=== PATIENT | female | born 1935 | race Caucasian/White ===

== ENCOUNTER 2019-04-30 19:19 | Inpatient (IN) | payer MEDICARE, OTHER ==
[~2019-04-30] VITALS: Ht 162.6 cm; Wt 48.5 kg
[~2019-04-30 19:19] MED LIST: ASCO250CH PO; ASPI81CH PO; CALCAVITDA PO; ERGO400 PO; FERR325 PO; FISH1000 PO; Ferrous Sulfat325 MG; HYDCHL25 PO; LATANOPROST2.5 ML OP; LEVSOD50 PO; METO50ER PO; PRAV20 PO; Prinivil10 MG PO; Vitamin B-12250 MCG PO; Vitamin C100 M1 PO
[2019-04-30] MEDS ORDERED: LATA.005SO BOTHEYES (21:50)
[2019-04-30] MEDS ORDERED: Prinivil10 MG PO (21:50)
[2019-04-30 21:58] LABS: Source, Urine Clean Catch
[2019-04-30 22:02] LABS: Appearance, Urine Clear (Clear); Bilirubin, Urine Neg (Neg); Blood, Urine Neg (Neg); Color, Urine Yellow (P-Yellow); Glucose Qualitative, Urine Neg (Neg); Ketones, Urine 2+ (Neg); Leukocyte Esterase, Urine 3+ (Neg); Nitrite, Urine Pos (Neg); Protein, Urine 1+ (Neg); Urobilinogen, Urine 1+ (Normal)
[2019-04-30 22:09] LABS: White Blood Cells, Urine 25-50 /hpf (0-5)
[2019-04-30 22:10] LABS: Bacteria Many /hpf; Red Blood Cells, Urine 0-2 /hpf (0-2); Squamous Epithelial Cells Few /hpf (Few)
[2019-04-30 22:14] LABS: BASOPHILS ABSOLUTE AUTO 0.03 K/mm3 (0.00-0.23); BASOPHILS PERCENT AUTO 0 % (0-2); EOSINOPHILS ABSOLUTE AUTO 0.03 K/mm3 (0.00-0.68); EOSINOPHILS PERCENT AUTO 0 % (0-6); Hematocrit 35.6 % (33.0-51.0); Hemoglobin 10.9 g/dL (11.5-16.0); IMMATURE GRAN ABSOLUTE AUTO 0.03 K/mm3 (0.00-0.10); IMMATURE GRAN PERCENT AUTO 0 % (0-1); LYMPHOCYTES ABSOLUTE AUTO 1.69 K/mm3 (0.84-5.20); LYMPHOCYTES PERCENT AUTO 21 % (21-46); MONOCYTES ABSOLUTE AUTO 0.57 K/mm3 (0.16-1.47); MONOCYTES PERCENT AUTO 7 % (4-13); Mean Corpuscular HGB 31.1 pg (26.0-34.0); Mean Corpuscular HGB Conc 30.6 g/dL (31.5-36.5); Mean Platelet Volume 10.2 fL (9.1-12.4); NEUTROPHILS ABSOLUTE AUTO 5.68 K/mm3 (1.96-9.15); NEUTROPHILS PERCENT AUTO 71 % (41-73); Platelet Count 419 K/mm3 (150-400); RDW Coefficient Variation 13.6 % (11.7-14.2); RDW Standard Deviation 50.9 fL (35.1-46.3); White Blood Cell Count 8.03 K/mm3 (4.00-11.30)
[2019-04-30 22:15] LABS: Mean Corpuscular Volume 102 fL (80-100)
[2019-04-30 22:32] LABS: Alanine Aminotransfer (ALT/SGP 33 U/L (12-78); Albumin, Blood 3.2 g/dL (3.4-5.0); Albumin/Globulin Ratio 0.9 (0.8-1.8); Alk Phos 88 U/L (50-136); Anion Gap 9 mmol/L (6-16); Aspartate Aminotrans (AST/SGOT 28 U/L (12-37); Bilirubin, Total 0.4 mg/dL (0.1-1.0); Blood Urea Nitrogen 28 mg/dL (8-24); Bun/Creatinine Ratio 35.4 (12.0-20.0); CO2, Blood 26 mmol/L (21-32); Calcium, Blood 8.7 mg/dL (8.5-10.1); Chloride, Blood 110 mmol/L (98-108); Creatinine, Blood 0.79 mg/dL (0.40-1.00); Globulin, Blood 3.7 g/dL (2.2-4.0); Glomerular Filtration Rate >60 (60-); Glucose, Blood 98 mg/dL (70-99); Potassium, Blood 3.9 mmol/L (3.5-5.5); Sodium, Blood 145 mmol/L (136-145); Total Protein, Blood 6.9 g/dL (6.4-8.2)
[2019-05-01 04:35] LABS: BASOPHILS ABSOLUTE AUTO 0.02 K/mm3 (0.00-0.23); BASOPHILS PERCENT AUTO 0 % (0-2); EOSINOPHILS ABSOLUTE AUTO 0.07 K/mm3 (0.00-0.68); EOSINOPHILS PERCENT AUTO 1 % (0-6); Hemoglobin 8.7 g/dL (11.5-16.0); IMMATURE GRAN ABSOLUTE AUTO 0.03 K/mm3 (0.00-0.10); IMMATURE GRAN PERCENT AUTO 1 % (0-1); LYMPHOCYTES PERCENT AUTO 26 % (21-46); MONOCYTES ABSOLUTE AUTO 0.72 K/mm3 (0.16-1.47); MONOCYTES PERCENT AUTO 11 % (4-13); Mean Corpuscular HGB 30.2 pg (26.0-34.0); Mean Corpuscular Volume 101 fL (80-100); Mean Platelet Volume 10.3 fL (9.1-12.4); NEUTROPHILS ABSOLUTE AUTO 3.92 K/mm3 (1.96-9.15); NEUTROPHILS PERCENT AUTO 61 % (41-73); Platelet Count 309 K/mm3 (150-400); RDW Coefficient Variation 13.3 % (11.7-14.2); RDW Standard Deviation 49.5 fL (35.1-46.3); Red Blood Cell Count 2.88 M/mm3 (3.80-5.20); White Blood Cell Count 6.46 K/mm3 (4.00-11.30)
[2019-05-01 04:49] LABS: International Normalized Ratio 1.03; Prothrombin Time Results 10.9 Sec (9.7-11.5)
[2019-05-01 05:04] LABS: Alanine Aminotransfer (ALT/SGP 22 U/L (12-78); Albumin, Blood 2.4 g/dL (3.4-5.0); Albumin/Globulin Ratio 0.9 (0.8-1.8); Alk Phos 63 U/L (50-136); Anion Gap 9 mmol/L (6-16); Aspartate Aminotrans (AST/SGOT 23 U/L (12-37); Bilirubin, Total 0.3 mg/dL (0.1-1.0); Blood Urea Nitrogen 22 mg/dL (8-24); CO2, Blood 22 mmol/L (21-32); Calcium, Blood 7.6 mg/dL (8.5-10.1); Chloride, Blood 113 mmol/L (98-108); Creatinine, Blood 0.65 mg/dL (0.40-1.00); Globulin, Blood 2.8 g/dL (2.2-4.0); Glomerular Filtration Rate >60 (60-); Glucose, Blood 71 mg/dL (70-99); Magnesium, Blood 1.7 mg/dL (1.6-2.4); Potassium, Blood 3.5 mmol/L (3.5-5.5); Sodium, Blood 144 mmol/L (136-145); Total Protein, Blood 5.2 g/dL (6.4-8.2)
--- NOTE | 2019-05-01 07:22 | NUR ---
SHIFT SUMMARY PT ARRIVED TO FLOOR IN NO DISTRESS. PT WAS CONNECTED TO SUCTION VIA NG TUBE. BROWNISH FLUID WAS NOTED. PT DENIED ANY PAIN OR NAUSEA. PT SLEPT T/O SHIFT WITHOUT ISSUE. PT AWAKE WITH CALL LIGHT IN REACH.
--- NOTE | 2019-05-01 07:30 | NUR ---
NG TUBE CLAMPED PER MD ORDER.
--- NOTE | 2019-05-01 12:41 | NUR ---
PT DENIES ABDOMINAL PAIN; NO INCREASED DISTENTION ON REPEAT ASSESSMENT AFTER NG CLAMPED FOR 4+ HOURS. RESIDUAL LESS THAN 20MLS WHEN RETURNED TO INTERMITTENT SUCTION. PT REPORTS FLATUS AND HAD A VERY SMALL BM. PLAN TO DC NG PER DR. VILLALOBOS'S ORDER.
--- NOTE | 2019-05-01 17:58 | NUR ---
SHIFT SUMMARY NG DISCONTINUED THIS SHIFT; PT TOLERATING CLEAR LIQUID DIET. SMALL BM X1; DENIES NAUSEA NO VOMITING ABDOMEN WITH SLIGHT TENDERNESS ON PALPATION; BOWEL SOUNDS HYPERACTIVE. [facility] AMBULATORY IN HALLWAY STANDBY ASSIST WITH WALKER AND GAIT BELT. FRIENDS TO VISIT TODAY. POSSIBLE DC TOMORROW.
[2019-05-02 04:37] LABS: BASOPHILS ABSOLUTE AUTO 0.03 K/mm3 (0.00-0.23); BASOPHILS PERCENT AUTO 1 % (0-2); EOSINOPHILS ABSOLUTE AUTO 0.18 K/mm3 (0.00-0.68); EOSINOPHILS PERCENT AUTO 4 % (0-6); Hematocrit 29.1 % (33.0-51.0); Hemoglobin 8.9 g/dL (11.5-16.0); IMMATURE GRAN ABSOLUTE AUTO 0.02 K/mm3 (0.00-0.10); IMMATURE GRAN PERCENT AUTO 0 % (0-1); LYMPHOCYTES ABSOLUTE AUTO 1.36 K/mm3 (0.84-5.20); LYMPHOCYTES PERCENT AUTO 27 % (21-46); MONOCYTES ABSOLUTE AUTO 0.59 K/mm3 (0.16-1.47); MONOCYTES PERCENT AUTO 12 % (4-13); Mean Corpuscular HGB 30.6 pg (26.0-34.0); Mean Corpuscular HGB Conc 30.6 g/dL (31.5-36.5); Mean Corpuscular Volume 100 fL (80-100); Mean Platelet Volume 10.1 fL (9.1-12.4); NEUTROPHILS ABSOLUTE AUTO 2.83 K/mm3 (1.96-9.15); NEUTROPHILS PERCENT AUTO 57 % (41-73); Platelet Count 320 K/mm3 (150-400); RDW Coefficient Variation 13.4 % (11.7-14.2); RDW Standard Deviation 49.1 fL (35.1-46.3); Red Blood Cell Count 2.91 M/mm3 (3.80-5.20); White Blood Cell Count 5.01 K/mm3 (4.00-11.30)
[2019-05-02 05:05] LABS: Albumin, Blood 2.7 g/dL (3.4-5.0); Anion Gap 8 mmol/L (6-16); Blood Urea Nitrogen 12 mg/dL (8-24); Bun/Creatinine Ratio 20.1 (12.0-20.0); CO2, Blood 24 mmol/L (21-32); Calcium, Blood 8.2 mg/dL (8.5-10.1); Chloride, Blood 113 mmol/L (98-108); Glomerular Filtration Rate >60 (60-); Glucose, Blood 82 mg/dL (70-99); Phosphorus, Blood 2.8 mg/dL (2.5-4.9); Potassium, Blood 3.5 mmol/L (3.5-5.5); Sodium, Blood 145 mmol/L (136-145)
--- NOTE | 2019-05-02 05:10 | NUR ---
PATIENT RESTED SOUNDLY THROUGHOUT THE NIGHT. SHE HAS HAD NO PAIN, HER ABDOMEN IS SOFT NON TENDER WITH ACTIVE BOWEL TONES. sHE IS ABLE TO SAFELY GET OOB TO BR. CALL LIGHT WITHIN REACH.
[2019-05-02] MEDS ORDERED: CEFU500T30 PO (09:45)
--- NOTE | 2019-05-02 10:12 | NUR ---
DISCHARGE NOTE PT DISCHARGED HOME VIA W/C POV WITH FRIEND AND IN NO ACUTE DISTRESS. IV DISCONTINUED INTACT. PT VERBALIZED UNDERSTANDING OF DISCHARGE INSTRUCTIONS AND IMPORTANCE OF MAKING FOLLOW UP APPTS WITH HER DOCTOR IN 1-[address] VELÁSQUEZ IN 2-4 WKS. RX FAXED TO [facility] ON [address]. ALL BELONGINGS SENT WITH PT AT TIME OF DISCHARGE.
== END 2019-05-02 10:15 | disposition home or self-care (01) | DRG 389 ==
LOC: ER 19:19 → MEDS 05-01 00:20 → ENPENDDIS 05-02 07:40 → MEDS 05-02 10:15
PROVIDERS: Internal Medicine Gastroenterology; Nurse Practitioner Acute Care; Physician Assistant; ADMIT Family Medicine
DX: K56.600 Partial intestinal obstruction, unspecified as to cause (principal); N39.0 Urinary tract infection, site not specified; G60.3 Idiopathic progressive neuropathy; I77.9 Disorder of arteries and arterioles, unspecified; E78.5 Hyperlipidemia, unspecified; I10 Essential (primary) hypertension; E03.9 Hypothyroidism, unspecified; M81.0 Age-related osteoporosis without current pathological fracture; G25.81 Restless legs syndrome; Z98.82 Breast implant status; Z79.82 Long term (current) use of aspirin; Z66 Do not resuscitate; E86.0 Dehydration; D50.9 Iron deficiency anemia, unspecified; Z86.73 Personal history of transient ischemic attack (TIA), and cerebral infarction without residual deficits; E78.00 Pure hypercholesterolemia, unspecified
CPT/HCPCS: 36415; 71046; 74019; 74176; 80053; 80061; 80069; 81001; 82728; 83540; 83550; 83690; 83735; 83880; 84443; 84484; 85025; 85610; 87077; 87086; 87186; 96361; 96365; 96375; 99285-25; J0696; J2405; J7030

== ENCOUNTER 2020-12-20 16:49 | Inpatient (IN) | payer MEDICARE, OTHER ==
[~2020-12-20] VITALS: Ht 162.6 cm; Wt 49.3 kg
[~2020-12-20 16:49] MED LIST changes: +CEFU500T30 PO; +LATA.005SO BOTHEYES
[2020-12-20 17:51] LABS: BASOPHILS ABSOLUTE AUTO 0.02 K/mm3 (0.00-0.23); BASOPHILS PERCENT AUTO 0 % (0-2); EOSINOPHILS ABSOLUTE AUTO 0.02 K/mm3 (0.00-0.68); EOSINOPHILS PERCENT AUTO 0 % (0-6); Hematocrit 34.6 % (33.0-51.0); Hemoglobin 10.8 g/dL (11.5-16.0); IMMATURE GRAN ABSOLUTE AUTO 0.04 K/mm3 (0.00-0.10); IMMATURE GRAN PERCENT AUTO 0 % (0-1); LYMPHOCYTES ABSOLUTE AUTO 1.08 K/mm3 (0.84-5.20); LYMPHOCYTES PERCENT AUTO 8 % (21-46); MONOCYTES ABSOLUTE AUTO 0.52 K/mm3 (0.16-1.47); MONOCYTES PERCENT AUTO 4 % (4-13); Mean Corpuscular HGB 32.5 pg (26.0-34.0); Mean Corpuscular HGB Conc 31.2 g/dL (31.5-36.5); Mean Corpuscular Volume 104 fL (80-100); Mean Platelet Volume 10.7 fL (9.1-12.4); NEUTROPHILS ABSOLUTE AUTO 11.44 K/mm3 (1.96-9.15); NEUTROPHILS PERCENT AUTO 87 % (41-73); Platelet Count 477 K/mm3 (150-400); RDW Coefficient Variation 16.1 % (11.7-14.2); RDW Standard Deviation 62.7 fL (35.1-46.3); Red Blood Cell Count 3.32 M/mm3 (3.80-5.20); White Blood Cell Count 13.12 K/mm3 (4.00-11.30)
[2020-12-20 17:56] LABS: Source, Urine Clean Catch
[2020-12-20 18:01] LABS: Appearance, Urine Hazy (Clear); Bilirubin, Urine Neg (Neg); Blood, Urine 1+ (Neg); Color, Urine Yellow (P-Yellow); Glucose Qualitative, Urine Neg (Neg); Ketones, Urine 1+ (Neg); Leukocyte Esterase, Urine 3+ (Neg); Nitrite, Urine Pos (Neg); Protein, Urine 2+ (Neg); Specific Gravity, Urine 1.025 (1.003-1.022); Urobilinogen, Urine NORM (Normal)
[2020-12-20 18:02] LABS: Alanine Aminotransfer (ALT/SGP 28 U/L (12-78); Albumin, Blood 3.3 g/dL (3.4-5.0); Albumin/Globulin Ratio 0.8 (0.8-1.8); Alk Phos 122 U/L (50-136); Anion Gap 6 mmol/L (6-16); Aspartate Aminotrans (AST/SGOT 30 U/L (12-37); Bilirubin, Total 0.3 mg/dL (0.1-1.0); Blood Urea Nitrogen 22 mg/dL (8-24); Bun/Creatinine Ratio 27.7 (12.0-20.0); CO2, Blood 26 mmol/L (21-32); Calcium, Blood 10.1 mg/dL (8.5-10.1); Chloride, Blood 109 mmol/L (98-108); Glomerular Filtration Rate >60 (60-); Glucose, Blood 124 mg/dL (70-99); Potassium, Blood 4.1 mmol/L (3.5-5.5); Sodium, Blood 141 mmol/L (136-145); Total Protein, Blood 7.3 g/dL (6.4-8.2)
[2020-12-20 18:26] LABS: Bacteria Many /hpf; Squamous Epithelial Cells Few /hpf (Few); White Blood Cells, Urine TNTC /hpf (0-5)
[2020-12-21 05:16] LABS: BASOPHILS ABSOLUTE AUTO 0.01 K/mm3 (0.00-0.23); BASOPHILS PERCENT AUTO 0 % (0-2); EOSINOPHILS ABSOLUTE AUTO 0.01 K/mm3 (0.00-0.68); EOSINOPHILS PERCENT AUTO 0 % (0-6); Hematocrit 31.4 % (33.0-51.0); Hemoglobin 9.8 g/dL (11.5-16.0); IMMATURE GRAN ABSOLUTE AUTO 0.04 K/mm3 (0.00-0.10); IMMATURE GRAN PERCENT AUTO 0 % (0-1); LYMPHOCYTES ABSOLUTE AUTO 0.85 K/mm3 (0.84-5.20); LYMPHOCYTES PERCENT AUTO 8 % (21-46); MONOCYTES ABSOLUTE AUTO 0.78 K/mm3 (0.16-1.47); MONOCYTES PERCENT AUTO 8 % (4-13); Mean Corpuscular HGB 32.8 pg (26.0-34.0); Mean Corpuscular HGB Conc 31.2 g/dL (31.5-36.5); Mean Corpuscular Volume 105 fL (80-100); Mean Platelet Volume 10.6 fL (9.1-12.4); NEUTROPHILS ABSOLUTE AUTO 8.51 K/mm3 (1.96-9.15); NEUTROPHILS PERCENT AUTO 84 % (41-73); Platelet Count 396 K/mm3 (150-400); RDW Coefficient Variation 16.4 % (11.7-14.2); RDW Standard Deviation 63.2 fL (35.1-46.3); Red Blood Cell Count 2.99 M/mm3 (3.80-5.20)
[2020-12-21 05:47] LABS: Alanine Aminotransfer (ALT/SGP 21 U/L (12-78); Albumin, Blood 2.7 g/dL (3.4-5.0); Albumin/Globulin Ratio 0.9 (0.8-1.8); Alk Phos 100 U/L (50-136); Anion Gap 7 mmol/L (6-16); Aspartate Aminotrans (AST/SGOT 26 U/L (12-37); Bilirubin, Total 0.5 mg/dL (0.1-1.0); Blood Urea Nitrogen 22 mg/dL (8-24); Bun/Creatinine Ratio 29.9 (12.0-20.0); CO2, Blood 27 mmol/L (21-32); Calcium, Blood 8.9 mg/dL (8.5-10.1); Chloride, Blood 111 mmol/L (98-108); Creatinine, Blood 0.74 mg/dL (0.40-1.00); Glomerular Filtration Rate >60 (60-); Glucose, Blood 87 mg/dL (70-99); Sodium, Blood 145 mmol/L (136-145); Total Protein, Blood 5.7 g/dL (6.4-8.2)
--- NOTE | 2020-12-21 07:03 | NUR ---
SHIFT SUMMARY PATIENT ALERT AND ORIENTED. HAS HAD NO COMPLAINTS OF PAIN. MEDICATED PER EMAR FOR NAUSEA AND VOMITING. PATIENT HAD MINIMAL NEEDS OVERNIGHT. IV PATENT AND INFUSING. BEDIN LOWEST POSITION WITH WHEELS LOCKED. CALL LIGHT WITHIN REACH. REPORT GIVEN TO ONCOMING RN.
--- NOTE | 2020-12-21 17:23 | NUR ---
SHIFT SUMMARY PT IS AOX4 AND PLEASANT. PT DENIES PAIN, N/V, SOB. PT IS ONE PERSON ASSIST IN ROOM. NG TUBE CONTINUES TO DRAIN AT INTERMITTENT SUCTION. SURGICAL CONSULT SAW PT TODAY. IV CLINIMEX AND FLUIDS ARE RUNNING. PT DID NOT HAVE VISITORS THIS QUINTEN. PT IS IN BED, CALL LIGHT IN REACH, LOW POSITION.
[2020-12-22 05:28] LABS: BASOPHILS ABSOLUTE AUTO 0.02 K/mm3 (0.00-0.23); BASOPHILS PERCENT AUTO 0 % (0-2); EOSINOPHILS ABSOLUTE AUTO 0.07 K/mm3 (0.00-0.68); EOSINOPHILS PERCENT AUTO 1 % (0-6); Hematocrit 27.3 % (33.0-51.0); Hemoglobin 8.3 g/dL (11.5-16.0); IMMATURE GRAN ABSOLUTE AUTO 0.02 K/mm3 (0.00-0.10); IMMATURE GRAN PERCENT AUTO 0 % (0-1); LYMPHOCYTES PERCENT AUTO 21 % (21-46); MONOCYTES ABSOLUTE AUTO 0.79 K/mm3 (0.16-1.47); MONOCYTES PERCENT AUTO 12 % (4-13); Mean Corpuscular HGB Conc 30.4 g/dL (31.5-36.5); Mean Corpuscular Volume 105 fL (80-100); Mean Platelet Volume 10.7 fL (9.1-12.4); NEUTROPHILS ABSOLUTE AUTO 4.23 K/mm3 (1.96-9.15); NEUTROPHILS PERCENT AUTO 65 % (41-73); Platelet Count 339 K/mm3 (150-400); RDW Coefficient Variation 16.5 % (11.7-14.2); RDW Standard Deviation 63.8 fL (35.1-46.3); Red Blood Cell Count 2.59 M/mm3 (3.80-5.20); White Blood Cell Count 6.53 K/mm3 (4.00-11.30)
--- NOTE | 2020-12-22 06:17 | NUR ---
SHIFT SUMMARY PATIENT ALERT AND ORIENTED. HAD NO COMPLAINTS OF PAIN OR NAUSEA. WHEN SHE WAS BLOWING HER NOSE THIS MORNING HER NG TUBE DISLODGED AND CAME OUT. TRACKMOBILE OPERATOR PHYSICIAN, DR AMBROCIO, WAS NOTIFIED AND SAID THAT SINCE SHE IS NOT ACTIVELY VOMITING OR FEELING NAUSEATED TO LEAVE IT OUT AND LET THE DAY SHIFT DOCTOR REEVALUATE THE NEED FOR IT. IV PATENT AND INFUSING. BED IN LOWEST POSITION WITH WHEELS LOCKED AND ALARM ON. CALL LIGHT WITHIN REACH. REPORT GIVEN TO ONCOMING RN.
[2020-12-22 06:25] LABS: Anion Gap 2 mmol/L (6-16); Blood Urea Nitrogen 25 mg/dL (8-24); Bun/Creatinine Ratio 35.3 (12.0-20.0); CO2, Blood 29 mmol/L (21-32); Chloride, Blood 112 mmol/L (98-108); Creatinine, Blood 0.71 mg/dL (0.40-1.00); Ferritin, Serum 61 ng/mL (8-252); Glomerular Filtration Rate >60 (60-); Glucose, Blood 97 mg/dL (70-99); Iron Serum 19 ug/dL (50-170); Percent Saturation 6.2 % (15.0-50.0); Sodium, Blood 143 mmol/L (136-145); Total Iron Binding Capacity 307 ug/dL (250-450)
--- NOTE | 2020-12-22 09:55 | NUR ---
LEFT A MESSAGE FOR DR PELAEZ REQUESTING A CALL BACK. PT NG TUBE CAME OUT WHEN SHE BLEW HER NOSE LAST NIGHT PER REPORT FROM NIGHT RN. NIGHT MD AWARE AND STATED NOT TO REPLACE IT AT THAT TIME. PT CURRENTLY NPO BUT NO NAUSEA POST MORNING MEDICATIONS. PT IS PASSING FLATTUS.
--- NOTE | 2020-12-22 20:00 | NUR ---
SHIFT SUMMARY- PT CHANGED TO CLEAR LIQUID DIET TODAY. SHE SEEMS TO BE TOLLERATING IT VERY WELL. PT CONTINUES TO DENY PAIN AND NAUSEA. PT IN BED SLEEPING AT SHIFT CHANGE. NO S&S OF DISTRESS NOTED AT THE TIME OF SHIFT CHANGE, SHE STATES SHE IS PASSING MORE FLATTUS, NO BM OF YET. IV CLINIMIX IS RUNNING. PER DR PELAEZ IT WILL BE DC'D WHEN THIS BAG IS COMPLETE. IV WILL BE SL AT THAT TIME. PLAN FOR POSSIBLE DC EARLY TOMORROW (PER THE PT AT THE TIME OF BEDSIDE REPORT). NO S&S OF DISTRESS NOTED AT THAT TIME. PASSED ALL ON IN REPORT TO NIGHT RN.
[2020-12-23 05:26] LABS: BASOPHILS ABSOLUTE AUTO 0.02 K/mm3 (0.00-0.23); BASOPHILS PERCENT AUTO 0 % (0-2); EOSINOPHILS ABSOLUTE AUTO 0.12 K/mm3 (0.00-0.68); EOSINOPHILS PERCENT AUTO 2 % (0-6); Hematocrit 24.6 % (33.0-51.0); Hemoglobin 7.6 g/dL (11.5-16.0); IMMATURE GRAN ABSOLUTE AUTO 0.02 K/mm3 (0.00-0.10); IMMATURE GRAN PERCENT AUTO 0 % (0-1); LYMPHOCYTES ABSOLUTE AUTO 1.17 K/mm3 (0.84-5.20); LYMPHOCYTES PERCENT AUTO 23 % (21-46); MONOCYTES ABSOLUTE AUTO 0.65 K/mm3 (0.16-1.47); MONOCYTES PERCENT AUTO 13 % (4-13); Mean Corpuscular HGB 32.5 pg (26.0-34.0); Mean Corpuscular HGB Conc 30.9 g/dL (31.5-36.5); Mean Corpuscular Volume 105 fL (80-100); Mean Platelet Volume 10.7 fL (9.1-12.4); NEUTROPHILS ABSOLUTE AUTO 3.19 K/mm3 (1.96-9.15); NEUTROPHILS PERCENT AUTO 62 % (41-73); Platelet Count 296 K/mm3 (150-400); RDW Coefficient Variation 15.8 % (11.7-14.2); Red Blood Cell Count 2.34 M/mm3 (3.80-5.20); White Blood Cell Count 5.17 K/mm3 (4.00-11.30)
[2020-12-23 05:53] LABS: Alanine Aminotransfer (ALT/SGP 13 U/L (12-78); Albumin, Blood 2.1 g/dL (3.4-5.0); Albumin/Globulin Ratio 0.8 (0.8-1.8); Alk Phos 72 U/L (50-136); Anion Gap 5 mmol/L (6-16); Aspartate Aminotrans (AST/SGOT 17 U/L (12-37); Bilirubin, Total 0.3 mg/dL (0.1-1.0); Blood Urea Nitrogen 20 mg/dL (8-24); Bun/Creatinine Ratio 28.3 (12.0-20.0); CO2, Blood 27 mmol/L (21-32); Calcium, Blood 7.6 mg/dL (8.5-10.1); Chloride, Blood 109 mmol/L (98-108); Creatinine, Blood 0.71 mg/dL (0.40-1.00); Globulin, Blood 2.8 g/dL (2.2-4.0); Glomerular Filtration Rate >60 (60-); Glucose, Blood 82 mg/dL (70-99); Potassium, Blood 3.7 mmol/L (3.5-5.5); Sodium, Blood 141 mmol/L (136-145); Total Protein, Blood 4.9 g/dL (6.4-8.2)
--- NOTE | 2020-12-23 06:46 | NUR ---
SHIFT SUMMARY NO ACUTE CHANGES OVERNIGHT. PT SLEPT T/O SHIFT. SHE REPORTS H/A THIS MORNING. TYLENOL WAS ADMINSTERED VIA PO. TOLERATING CLEAR DIET. REPORTS PASSING FLATUS. DENIES NAUSEA, VOMITING AND NO ABD PAIN. CLINIMIX IV DC'D LAST NIGHT. SHE IS SALINE LOCKED. PLAN TO DISCHARGED TODAY. CALL LIGHT WITHIN REACH. WILL PROVIDE REPORT TO ONCOMING NURSE.
[2020-12-23] MEDS ORDERED: CIPR500 PO (13:30)
--- NOTE | 2020-12-23 15:18 | NUR ---
DISCHARGED PT DISCHARGED TO HOME; PT IV DC'D. PT GIVEN PACKETS AND EDUCATED ABOUT THE ABX MEDICATION AND HOME MEDICATIONS. PT ALSO EDUCATED ABOUT THE SOFT DIET. PT INSTRUCTED TO CALL PCP AND FOLLOW UP WITHIN A WEEK. PCP WILL FU TO ENDOSCOPY OUTPATIENT. PT AWAARE. PT VSS AND NO COMPLAIN OF ANY DISCOMFORT. PT HAD A BM PRIOR DISCHARGE AND WNL TOLERATED FULL LIQUID WIHTOUT PROBLEMS
--- NOTE | 2020-12-25 19:53 | NUR ---
SUMMARY: ADMIT: 12/20/20 12/23/20 DISCHARGED HOME, SOFT DIET, EXPECT [facility] TO CALL FRIDAY TO SCHEDULE [facility] APPOINTMENT IN 1 WEEK. NO DME OR HOME HEALTH ORDERED. CP 1. 85-YEAR-OLD FEMALE COMING IN WITH SMALL BOWEL OBSTRUCTION.
== END 2020-12-23 15:01 | disposition home or self-care (01) | DRG 389 ==
LOC: ER 16:49 → MEDS 12-21 00:55
PROVIDERS: Family Medicine; Hospitalist; Physician Assistant; ADMIT Internal Medicine
PROC: 0D9670Z Drainage of Stomach with Drainage Device, Via Natural or Artificial Opening (ICD-10-PCS; principal; 2020-12-20)
DX: K56.609 Unspecified intestinal obstruction, unspecified as to partial versus complete obstruction (principal); N39.0 Urinary tract infection, site not specified; I25.10 Atherosclerotic heart disease of native coronary artery without angina pectoris; I10 Essential (primary) hypertension; I16.0 Hypertensive urgency; E03.9 Hypothyroidism, unspecified; B96.20 Unspecified Escherichia coli [E. coli] as the cause of diseases classified elsewhere; D50.9 Iron deficiency anemia, unspecified; G62.9 Polyneuropathy, unspecified; M43.10 Spondylolisthesis, site unspecified; M81.0 Age-related osteoporosis without current pathological fracture; Z88.0 Allergy status to penicillin; Z88.8 Allergy status to other drugs, medicaments and biological substances; Z79.82 Long term (current) use of aspirin
CPT/HCPCS: 36415; 71045; 74176; 80048; 80053; 81001; 82607; 82728; 82746; 83540; 83550; 83735; 84443; 85025; 87077; 87086; 87186; 96365; 96372-59; 99285-25; A9270; A9270-GY; J0360; J0696; J1650; J2405; J7030; J7120

== ENCOUNTER 2022-03-22 17:28 | Inpatient (IN) | payer MEDICARE, OTHER ==
[~2022-03-22] VITALS: Ht 162.6 cm; Wt 49.0 kg
[~2022-03-22 17:28] MED LIST changes: +CIPR500 PO; +EUTHYROX88 MCG; -FERR325 PO; +FERSU300 PO; -LEVSOD50 PO
[2022-03-22 18:17] LABS: BASOPHILS ABSOLUTE AUTO 0.02 K/mm3 (0.00-0.23); BASOPHILS PERCENT AUTO 0 % (0-2); EOSINOPHILS ABSOLUTE AUTO 0.11 K/mm3 (0.00-0.68); EOSINOPHILS PERCENT AUTO 1 % (0-6); Hematocrit 37.2 % (33.0-51.0); IMMATURE GRAN ABSOLUTE AUTO 0.01 K/mm3 (0.00-0.10); IMMATURE GRAN PERCENT AUTO 0 % (0-1); LYMPHOCYTES ABSOLUTE AUTO 1.74 K/mm3 (0.84-5.20); LYMPHOCYTES PERCENT AUTO 22 % (21-46); MONOCYTES ABSOLUTE AUTO 0.67 K/mm3 (0.16-1.47); MONOCYTES PERCENT AUTO 8 % (4-13); Mean Corpuscular HGB 31.8 pg (26.0-34.0); Mean Corpuscular HGB Conc 32.3 g/dL (31.5-36.5); Mean Corpuscular Volume 99 fL (80-100); Mean Platelet Volume 11.1 fL (9.1-12.4); NEUTROPHILS ABSOLUTE AUTO 5.52 K/mm3 (1.96-9.15); NEUTROPHILS PERCENT AUTO 68 % (41-73); Platelet Count 354 K/mm3 (150-400); RDW Coefficient Variation 13.8 % (11.7-14.2); RDW Standard Deviation 50.6 fL (35.1-46.3); Red Blood Cell Count 3.77 M/mm3 (3.80-5.20); White Blood Cell Count 8.07 K/mm3 (4.00-11.30)
[2022-03-22 18:23] LABS: Albumin, Blood 3.1 g/dL (3.4-5.0); Albumin/Globulin Ratio 0.8 (0.8-1.8); Bilirubin, Total 0.6 mg/dL (0.1-1.0); Bun/Creatinine Ratio 43.3 (12.0-20.0); Creatinine, Blood 0.55 mg/dL (0.40-1.00); Potassium, Blood 4.6 mmol/L (3.5-5.5); Total Protein, Blood 7.1 g/dL (6.4-8.2)
--- NOTE | 2022-03-23 02:05 | NUR ---
ADMIT NOTE HANDOFF RECEIVED FROM CERTIFIED PHARMACY TECH CHRISTI. PT ARRIVED TO FLOOR VIA GURNEY. PT ORIENTED TO UNIT. PERSONAL POSSESSIONS WITH PT. IV FLUIDS BEGUN ORDERED. TELEMETRY IN PLACE. CALL BUTTON WITHIN REACH
--- NOTE | 2022-03-23 05:07 | NUR ---
SHIFT SUMMARY ADMITTED FOR SBO. FULL CODE. LR INFUSING ORDERED. PRN NAUSEA MEDS GIVEN. PT IS A&O X4. 1 ASSIST W/FWW. SHE USES A FWW @ HOME, SHE LIVES AT [facility]. SHE IS ON RA. SHE IS NPO. NO PAIN MEDICATION GIVEN YET THIS SHIFT. BP'S HAVE BEEN WNL SINCE ADMIT TO MEDICAL FLOOR. I HEAR BOWEL TONES IN ALL FOUR QUADRANTS. PT STATES SHE HAS GAS. SHE HAS A HX OF NEUROPATHY AND OSTEOPOROSIS. SHE TELLS ME THAT SHE HAS BEEN FALLING AT HOME. SHE IS ON ELIQUIS.
[2022-03-23 05:39] LABS: BASOPHILS ABSOLUTE AUTO 0.01 K/mm3 (0.00-0.23); BASOPHILS PERCENT AUTO 0 % (0-2); EOSINOPHILS ABSOLUTE AUTO 0.01 K/mm3 (0.00-0.68); EOSINOPHILS PERCENT AUTO 0 % (0-6); Hematocrit 35.5 % (33.0-51.0); IMMATURE GRAN ABSOLUTE AUTO 0.02 K/mm3 (0.00-0.10); IMMATURE GRAN PERCENT AUTO 0 % (0-1); LYMPHOCYTES ABSOLUTE AUTO 0.92 K/mm3 (0.84-5.20); LYMPHOCYTES PERCENT AUTO 10 % (21-46); MONOCYTES ABSOLUTE AUTO 0.88 K/mm3 (0.16-1.47); MONOCYTES PERCENT AUTO 10 % (4-13); Mean Corpuscular HGB 31.3 pg (26.0-34.0); Mean Corpuscular Volume 101 fL (80-100); Mean Platelet Volume 10.9 fL (9.1-12.4); NEUTROPHILS PERCENT AUTO 80 % (41-73); Platelet Count 332 K/mm3 (150-400); RDW Coefficient Variation 13.9 % (11.7-14.2); RDW Standard Deviation 51.8 fL (35.1-46.3); Red Blood Cell Count 3.52 M/mm3 (3.80-5.20); White Blood Cell Count 8.94 K/mm3 (4.00-11.30)
[2022-03-23 05:49] LABS: Calcium, Blood 9.1 mg/dL (8.5-10.1); Creatinine, Blood 0.67 mg/dL (0.40-1.00); Potassium, Blood 4.1 mmol/L (3.5-5.5)
--- NOTE | 2022-03-23 17:56 | NUR ---
SHIFT SUMMARY- PT A/OX3, PT HAS ONLY REPORTED MILD PAIN TO ABD THIS AM AND DENIES ANY PAIN THIS EVENING. NO NAUSEA T/O THE DAY. MILD ABDOMINAL TENDERNESS WITH PALPATION, MILD DISTENTION NOTED, BOWEL TONES PRESENT. PT REPORTED PASSING GAS BUT NO BM TODAY. TOLERARTING CLEAR LIQUIDS. LS CLEAR, ON RA. TELE SR AT 78. SBA WITH FWW TO BATHROOM AND PT AMBULATED IN HALLS WITH ASSISTANCE. NO OTHER ACUTE CHANGES THIS SHIFT.
--- NOTE | 2022-03-24 04:35 | NUR ---
PT A/OX4 VERY PLEASANT AND MAURILIO TO MAKE NEEDS KNOWN. PT ON LR @ 75 ML/HR. PT HAD A VERY SMALL FORMED BM. PT REPORTS SHE CONTINUES TO PASS GAS. TOLERATED CURRENT DIET. PT SBA TO BATHROOM. NO NEW COMPLAINS THIS SHIFT.
--- NOTE | 2022-03-24 11:55 | NUR ---
HYPERTENSION- PT SBP NOTED TO BE IN THE 160'S THIS AM. PT HAS BEEN OFF HOME BP MEDS. DR GOMEZ NOTIFIED AND ORDERS RECEIVED TO RESUME LISINOPRIL 20MG DAILY AND WILL START METOPROLOL XL 25MG DAILY TO START TODAY.
--- NOTE | 2022-03-24 14:02 | NUR ---
PT TOLERATED FULL LIQUID DIET WELL, ADVANCING TO SOFT FOR DINNER. PT TO IMAGING FOR ABD XRAY AT THIS TIME.
--- NOTE | 2022-03-24 16:25 | NUR ---
SHIFT SUMMARY- PT A/OX4, SBA WITH FWW UP IN ROOM. PT DENIES ANY COMPLAINTS T/O THE DAY. LS CLEAR, ON RA. TELE SR AT 89. PT STARTED BACK ON HOME BP MEDS DUE TO HYPERTENSION. PT CONT TO REPORT PASSING GAS, NO FURTHER BM TODAY, TOLERATING FULL LIQUID AND ADVANCING TO SOFT DIET THIS EVENING. ABDOMINAL XRAY COMPLETED THIS AFTERNOON. POSS D/C HOME TOMORROW. NO OTHER ACUTE CHANGES THIS SHIFT.
--- NOTE | 2022-03-24 23:45 | NUR ---
NURSE NOTE: APPROXIMATELY 2345 PT SUSTAINED FALL WHEN AMBULATING TO BATHROOM WITH WALKER AND STANDBY ASSIST FROM DIVISION MANAGER. PT LOST BALANCE ONCE IN BATHROOM WHEN TURNING TO SIT ON TOILET, FELL BACKWARDS AND SCRAPED BACK AND HIT HEAD ON BATHROOM HANDLE. PT ASSESSED AND ASSISTED BACK TO BED- MEPILEX APPLIED TO ABRASION ON BACK, HEAD ASSESSED- SLIGHT REDNESS AT SITE OF IMPACT WITH NO BROKEN SKIN. PT REMAINS A/OX4 WITH NO NEUROLOGICAL CHANGES. PT STATES "I FEEL FINE I JUST LOST MY BALANCE, I HAVE THE SLIGHTEST HEADACHE BUT THATS ALL". POST FALL VITAL SIGNS- HYPERTENSION SYSTOLIC BP 180>. CRISTÓBAL LOPEZ NOTIFIED OF FALL, HYPERTENSION, ABRASION TO BACK AND SLIGHT HEADACHE POST FALL. GAVE TELEPHONE ORDER FOR IV HYDRALAZINE 10MG Q4 PRN FOR SYSTOLIC BP 160>. ACETAMINOPHEN PO 650MG Q6HRS FOR PAIN, AND PT EVAL AND TREAT FOR THE MORNING. PER REQUEST WILL NOTIFY IF BP DOES NOT IMPROVE POST ADMINISTRATION OF IV HYDRALAZINE OR PAIN DOES NOT IMPROVE POST ADMINISTRATION PO ACETAMINOPHEN.
--- NOTE | 2022-03-25 04:05 | NUR ---
SHIFT SUMMARY: A/OX4, 1 PERSON ASSIST WITH WALKER. PATIENT SUSTAINED FALL WHEN AMBULATING WITH STAFF TO THE BATHROOM TONIGHT (PLEASE REVIEW NURSE NOTE FOR FURTHER DETAILS) MINOR INJURY SUSTAINED. ACETAMINOPHEN ADMINISTERED POST FALL FOR SLIGHT HEADACHE 09/10 AND PRN HYDRALAZINE ADMINISTERED FOR HYPERTENSION SYSTOLIC 180>. POST ADMINISTRATION OF HYDRALAZINE PT HAD SIGNIFICANT DECREASE IN SYSTOLIC BP DOWN TO SYSTOLIC 104- NON SYMPTOMATIC. NO NEUROLOGICAL CHANGES, MD ORDERED PT EVAL TO BE COMPLETED PRIOR TO DISCHARGE. PT CONTINUES TO CALL APPROPRIATELY, BED IN LOW POSITION, BED ALARM ACTIVATED, CALL VICENTE AND BELONGINGS IN REACH.
--- NOTE | 2022-03-25 16:22 | NUR ---
DISCHARGE SUMMARY S/P SBO (RESOLVED), A/O X4, VSS, TOLERATING PO, AMBULATES WITH SBA AND WALKER, VOIDING/BM TODAY. DISCUSSED DISCHARGE INFORMATION WITH THE PATIENT INCLUDING HOME MEDICATIONS, FOLLOW UP INFORMATION, AND CONTACT INFORMATION SHOULD ANY QEUSTIONS COME UP AFTER DISCHARGE. IV ACCESS REMOVED AND NO OTHER DEVICES IN PLACE. PT HAD NO QUESTIONS AT TIME OF DISCHARGE. ESCORTED OUT VIA WC TO PRIVATE AUTO TO GO HOME. PT LEFT WITH ALL PERSONAL POSSESSIONS
== END 2022-03-25 15:49 | disposition home or self-care (01) | DRG 390 ==
LOC: ER 17:28 → MEDS 23:31 → ER 03-23 00:25 → MEDS 03-23 01:11
PROVIDERS: Emergency Medicine; ADMIT Family Medicine
DX: K56.600 Partial intestinal obstruction, unspecified as to cause (principal); M81.0 Age-related osteoporosis without current pathological fracture; H40.9 Unspecified glaucoma; I25.10 Atherosclerotic heart disease of native coronary artery without angina pectoris; J45.909 Unspecified asthma, uncomplicated; I10 Essential (primary) hypertension; D64.9 Anemia, unspecified; E03.9 Hypothyroidism, unspecified; Z98.890 Other specified postprocedural states; Z88.0 Allergy status to penicillin; Z88.1 Allergy status to other antibiotic agents; Z88.8 Allergy status to other drugs, medicaments and biological substances; Z79.2 Long term (current) use of antibiotics; Z79.82 Long term (current) use of aspirin; Z79.899 Other long term (current) drug therapy
CPT/HCPCS: 36415; 74022; 74177; 80048; 80053; 83690; 85025; 96374; 96375; 97110; 97116; 97162; 99285-25; A9270; J0360; J2405; J3010; J7120; Q9967

== ENCOUNTER 2022-10-22 17:59 | Inpatient (IN) | payer MEDICARE, OTHER ==
[~2022-10-22] VITALS: Ht 162.6 cm; Wt 45.2 kg
[~2022-10-22 17:59] MED LIST changes: +METO100ER PO; -METO50ER PO
[2022-10-22 21:01] LABS: BASOPHILS ABSOLUTE AUTO 0.03 K/mm3 (0.00-0.23); BASOPHILS PERCENT AUTO 0 % (0-2); EOSINOPHILS ABSOLUTE AUTO 0.09 K/mm3 (0.00-0.68); EOSINOPHILS PERCENT AUTO 1 % (0-6); Hematocrit 34.2 % (33.0-51.0); Hemoglobin 10.9 g/dL (11.5-16.0); IMMATURE GRAN ABSOLUTE AUTO 0.04 K/mm3 (0.00-0.10); IMMATURE GRAN PERCENT AUTO 1 % (0-1); LYMPHOCYTES ABSOLUTE AUTO 1.41 K/mm3 (0.84-5.20); LYMPHOCYTES PERCENT AUTO 18 % (21-46); MONOCYTES ABSOLUTE AUTO 0.57 K/mm3 (0.16-1.47); MONOCYTES PERCENT AUTO 7 % (4-13); Mean Corpuscular HGB 31.5 pg (26.0-34.0); Mean Corpuscular HGB Conc 31.9 g/dL (31.5-36.5); Mean Corpuscular Volume 99 fL (80-100); Mean Platelet Volume 10.6 fL (9.1-12.4); NEUTROPHILS ABSOLUTE AUTO 5.74 K/mm3 (1.96-9.15); NEUTROPHILS PERCENT AUTO 73 % (41-73); Platelet Count 352 K/mm3 (150-400); RDW Coefficient Variation 14.2 % (11.7-14.2); RDW Standard Deviation 51.8 fL (35.1-46.3); Red Blood Cell Count 3.46 M/mm3 (3.80-5.20); White Blood Cell Count 7.88 K/mm3 (4.00-11.30)
[2022-10-22 21:22] LABS: Albumin, Blood 2.8 g/dL (3.4-5.0); Albumin/Globulin Ratio 0.8 (0.8-1.8); Bilirubin, Total 0.4 mg/dL (0.1-1.0); Bun/Creatinine Ratio 42.7 (12.0-20.0); Calcium, Blood 9.4 mg/dL (8.5-10.1); Creatinine, Blood 0.73 mg/dL (0.40-1.00); Globulin, Blood 3.5 g/dL (2.2-4.0); Potassium, Blood 4.5 mmol/L (3.5-5.5); Total Protein, Blood 6.3 g/dL (6.4-8.2)
[2022-10-22 21:53] LABS: International Normalized Ratio 0.98; Prothrombin Time Results 10.3 Sec (9.7-11.5)
--- NOTE | 2022-10-22 23:45 | NUR ---
ARRIVAL PT ARRIVED TO FLOOR IN NO DISTRESS, LLE SHORTENED AND EXTERNALLY ROTATED. PULSE STRONG AND SENSATION INTACT. LLE NOTED TO BE COLD TO THE TOUCH, WARM BLANKET PLACED ON THE EXTREMITY. VSS, BP NOTED TO BE SIGNIFIGANTLY LOWER THAN IT WAS IN ER. PT A/OX4, ON RA. PLAN TO BE NPO AT 0000 FOR POSSIBLE SURGERY IN AM. THE PATIENT IS RESTING IN BED, IN NO DISTRESS, CALL LIGHT IN REACH
--- NOTE | 2022-10-23 00:15 | NUR ---
PAIN MANAGEMENT DR DIAZ CALLED D/T PTS PAIN BEING UNMANAGED BY IV MEDICATION. ORDER OBTAINED FOR ZANAFLEX BID PRN.
[2022-10-23 03:43] LABS: BASOPHILS ABSOLUTE AUTO 0.03 K/mm3 (0.00-0.23); BASOPHILS PERCENT AUTO 0 % (0-2); EOSINOPHILS ABSOLUTE AUTO 0.06 K/mm3 (0.00-0.68); EOSINOPHILS PERCENT AUTO 1 % (0-6); Hematocrit 29.4 % (33.0-51.0); Hemoglobin 9.4 g/dL (11.5-16.0); IMMATURE GRAN ABSOLUTE AUTO 0.03 K/mm3 (0.00-0.10); IMMATURE GRAN PERCENT AUTO 0 % (0-1); LYMPHOCYTES ABSOLUTE AUTO 1.15 K/mm3 (0.84-5.20); LYMPHOCYTES PERCENT AUTO 15 % (21-46); MONOCYTES ABSOLUTE AUTO 0.79 K/mm3 (0.16-1.47); MONOCYTES PERCENT AUTO 11 % (4-13); Mean Corpuscular HGB 31.2 pg (26.0-34.0); Mean Corpuscular Volume 98 fL (80-100); Mean Platelet Volume 10.7 fL (9.1-12.4); NEUTROPHILS ABSOLUTE AUTO 5.42 K/mm3 (1.96-9.15); NEUTROPHILS PERCENT AUTO 72 % (41-73); Platelet Count 309 K/mm3 (150-400); RDW Coefficient Variation 14.2 % (11.7-14.2); RDW Standard Deviation 51.1 fL (35.1-46.3); Red Blood Cell Count 3.01 M/mm3 (3.80-5.20); White Blood Cell Count 7.48 K/mm3 (4.00-11.30)
[2022-10-23 04:04] LABS: Albumin, Blood 2.4 g/dL (3.4-5.0); Albumin/Globulin Ratio 0.8 (0.8-1.8); Bilirubin, Total 0.5 mg/dL (0.1-1.0); Bun/Creatinine Ratio 46.4 (12.0-20.0); Creatinine, Blood 0.71 mg/dL (0.40-1.00); Globulin, Blood 2.9 g/dL (2.2-4.0); Potassium, Blood 3.8 mmol/L (3.5-5.5); Total Protein, Blood 5.3 g/dL (6.4-8.2)
--- NOTE | 2022-10-23 04:17 | NUR ---
VSS. PT SLEPT WELL T/O THE NIGHT. MEDICATED FOR PAIN WITH PRN'S. HAS BEEN NPO SINCE 0000 FOR SURGERY TODAY. SURGICAL [place] COMPLETE. SENSATION AND CIRCULATION REMAINS INTACT IN LLE. PLAN FOR PT TO ATTEMPT TO USE BEDPAN SOON. THE PATIENT IS CURRENTLY RESTING, IN NO DISTRESS, CALL LIGHT IN REACH.
--- NOTE | 2022-10-23 04:43 | NUR ---
NARCAN 0.4 MG OF NARCAN ADMINISTERED TO PT AFTER BECOMING SOMULENT FROM A DOSE OF IV FENT. PT IMMEDIATELY AWOKE, VITAL SIGNS REMAIN STABLE. DR RAMIREZ CALLED AND UPDATED ON THIS INCIDENT, ALSO OBTAINED ORDER FOR FLUIDS PT IS NPO. PLAN TO CALL WITH FURTHER CONCERNS
--- NOTE | 2022-10-23 08:41 | NUR ---
Upon receiving a referral for spiritual care, I visited the patient. She immediately tells me about her nervousness about the surgery, her pain and her sleepiness. I provide anxiety containment, therapeutic listening, and prayer. Patient responded well and showed signs of reduced stress and increased peace. I will continue to remain available to patient and family.
--- NOTE | 2022-10-23 16:37 | NUR ---
SHIFT SUMMARY PT A&OX4, VSS/RA, VOIDING/BEDPAN, NPO FOR SG, PAIN MANAGED WELL WITH TYLENOL AND ULTRAM PO, LR @ 100 MLS/HR, ASSISTS W/REPOSITIONING. TAKEN TO O.R. APPROX 1515. WILL REPORT TO ONCOMING SUSAN RN.
[2022-10-24 04:30] LABS: BASOPHILS ABSOLUTE AUTO 0.01 K/mm3 (0.00-0.23); BASOPHILS PERCENT AUTO 0 % (0-2); EOSINOPHILS PERCENT AUTO 0 % (0-6); Hematocrit 26.6 % (33.0-51.0); Hemoglobin 8.5 g/dL (11.5-16.0); IMMATURE GRAN ABSOLUTE AUTO 0.03 K/mm3 (0.00-0.10); IMMATURE GRAN PERCENT AUTO 0 % (0-1); LYMPHOCYTES ABSOLUTE AUTO 0.51 K/mm3 (0.84-5.20); LYMPHOCYTES PERCENT AUTO 5 % (21-46); MONOCYTES ABSOLUTE AUTO 0.32 K/mm3 (0.16-1.47); MONOCYTES PERCENT AUTO 3 % (4-13); Mean Corpuscular HGB 31.3 pg (26.0-34.0); Mean Corpuscular Volume 98 fL (80-100); Mean Platelet Volume 10.8 fL (9.1-12.4); NEUTROPHILS ABSOLUTE AUTO 9.08 K/mm3 (1.96-9.15); NEUTROPHILS PERCENT AUTO 91 % (41-73); Platelet Count 266 K/mm3 (150-400); RDW Coefficient Variation 14.4 % (11.7-14.2); RDW Standard Deviation 51.3 fL (35.1-46.3); Red Blood Cell Count 2.72 M/mm3 (3.80-5.20); White Blood Cell Count 9.95 K/mm3 (4.00-11.30)
--- NOTE | 2022-10-24 04:41 | NUR ---
SHIFT SUMMARY NO ACUTE CHANGES TO REPORT OVERNIGHT, POD 0 LEFT TOTAL HIP. SHE HAS DONE WELL OVERNIGHT, PAIN HAS BEEN MINIMAL AND WELL CONTROLLED WITH SCHEDULED TYLENOL. PT HAS VOIDED AND IS TOLERATING PO INTAKE. SHE IS A/OX4, BUT DOES HAVE SOME MILD FORGETFULNESS. POST OP VITALS ARE STABLE. DRESSING INTACT TO LEFT HIP. PT ABLE TO WIGGLE TOES. BED IN LOWEST POSITION, CALL LIGHT WITHIN REACH.
[2022-10-24 04:50] LABS: Albumin, Blood 2.1 g/dL (3.4-5.0); Anion Gap 4 mmol/L (6-16); Blood Urea Nitrogen 21 mg/dL (8-24); Bun/Creatinine Ratio 33.9 (12.0-20.0); CO2, Blood 27 mmol/L (21-32); Calcium, Blood 8.7 mg/dL (8.5-10.1); Chloride, Blood 110 mmol/L (98-108); Creatinine, Blood 0.62 mg/dL (0.40-1.00); Glomerular Filtration Rate 87 (60-); Glucose, Blood 151 mg/dL (70-99); Magnesium, Blood 1.8 mg/dL (1.6-2.4); Phosphorus, Blood 3.9 mg/dL (2.5-4.9); Sodium, Blood 141 mmol/L (136-145)
--- NOTE | 2022-10-24 09:41 | NUR ---
10/24/22 0941 Missy Jackson VERIFICATIONS: EDIT CHART.
--- NOTE | 2022-10-24 14:07 | NUR ---
REPORT CALLED TO ANEUDY AT [facility]
[2022-10-24 14:08] LABS: Influenza A, PCR NEGATIVE (NEGATIVE); Influenza B, PCR NEGATIVE (NEGATIVE); Resp Syncytial Virus, PCR NEGATIVE (NEGATIVE); SARS-Cov-2 (COVID-19) PCR, MMC NEGATIVE (NEGATIVE)
--- NOTE | 2022-10-24 17:30 | NUR ---
DISCHARGE SUMMARY PT A&OX4, VSS/RA, MARIAH PO, VOIDING, AMB W/FWW SBA, PAIN MANAGED WITH TYLENOL, IV DC'D. LEFT FLOOR VIA WC TO GO TO REHAB WITH FAMILY, WITH ENV/NARC SCRIPT FOR SNF, AND ALL PERSONAL POSSESSIONS. REPORT CALLED TO ANEUDY ROJAS TODAY.
== END 2022-10-24 17:50 | DRG 522 ==
LOC: ER 17:59 → SURS 22:02
PROVIDERS: Family Medicine; Orthopaedic Surgery; Student in an Organized Health Care Education/Training Program; ADMIT Internal Medicine
PROC: 0SRS0JA Replacement of Left Hip Joint, Femoral Surface with Synthetic Substitute, Uncemented, Open Approach (ICD-10-PCS; principal; 2022-10-23 14:00)
DX: S72.002A Fracture of unspecified part of neck of left femur, initial encounter for closed fracture (principal); M81.0 Age-related osteoporosis without current pathological fracture; I25.10 Atherosclerotic heart disease of native coronary artery without angina pectoris; I10 Essential (primary) hypertension; D63.8 Anemia in other chronic diseases classified elsewhere; E03.9 Hypothyroidism, unspecified; H40.9 Unspecified glaucoma; J45.909 Unspecified asthma, uncomplicated; W18.30XA Fall on same level, unspecified, initial encounter; Z20.822 Contact with and (suspected) exposure to COVID-19; Z88.0 Allergy status to penicillin; Z88.8 Allergy status to other drugs, medicaments and biological substances; Z88.1 Allergy status to other antibiotic agents; Z79.899 Other long term (current) drug therapy; Z79.82 Long term (current) use of aspirin; Z79.811 Long term (current) use of aromatase inhibitors; Z98.890 Other specified postprocedural states; Z87.19 Personal history of other diseases of the digestive system
CPT/HCPCS: 0241U; 36415; 72170; 73502; 73590; 80053; 80069; 82947; 83735; 85025; 85610; 93005; 93010; 96374; 96375; 96376; 97162; 97165; 97530; 97535; 99285-25; A9270; C1776; J0171; J0360; J0690; J0735; J1100; J1885; J2250; J2310; J2405; J2704; J2795; J3010; J7120

== ENCOUNTER 2022-10-26 15:27 | Observation (INO) | payer MEDICARE, OTHER ==
[~2022-10-26] VITALS: Ht 162.6 cm; Wt 47.6 kg
[2022-10-26 16:06] LABS: BASOPHILS ABSOLUTE AUTO 0.03 K/mm3 (0.00-0.23); BASOPHILS PERCENT AUTO 0 % (0-2); EOSINOPHILS ABSOLUTE AUTO 0.11 K/mm3 (0.00-0.68); EOSINOPHILS PERCENT AUTO 1 % (0-6); Hemoglobin 10.5 g/dL (11.5-16.0); IMMATURE GRAN ABSOLUTE AUTO 0.08 K/mm3 (0.00-0.10); IMMATURE GRAN PERCENT AUTO 1 % (0-1); LYMPHOCYTES ABSOLUTE AUTO 2.35 K/mm3 (0.84-5.20); LYMPHOCYTES PERCENT AUTO 18 % (21-46); MONOCYTES ABSOLUTE AUTO 0.79 K/mm3 (0.16-1.47); MONOCYTES PERCENT AUTO 6 % (4-13); Mean Corpuscular HGB 31.4 pg (26.0-34.0); Mean Corpuscular HGB Conc 31.8 g/dL (31.5-36.5); Mean Corpuscular Volume 99 fL (80-100); Mean Platelet Volume 10.7 fL (9.1-12.4); NEUTROPHILS ABSOLUTE AUTO 9.79 K/mm3 (1.96-9.15); NEUTROPHILS PERCENT AUTO 75 % (41-73); Platelet Count 301 K/mm3 (150-400); RDW Coefficient Variation 14.6 % (11.7-14.2); RDW Standard Deviation 53.4 fL (35.1-46.3); Red Blood Cell Count 3.34 M/mm3 (3.80-5.20); White Blood Cell Count 13.15 K/mm3 (4.00-11.30)
[2022-10-26 16:28] LABS: Albumin, Blood 2.4 g/dL (3.4-5.0); Albumin/Globulin Ratio 0.6 (0.8-1.8); Bun/Creatinine Ratio 45.3 (12.0-20.0); Calcium, Blood 9.6 mg/dL (8.5-10.1); Creatinine, Blood 0.66 mg/dL (0.40-1.00); Potassium, Blood 3.7 mmol/L (3.5-5.5); Total Protein, Blood 6.4 g/dL (6.4-8.2)
[2022-10-26 21:14] LABS: Source, Urine Straight Cath
[2022-10-26 21:30] LABS: Appearance, Urine Clear (Clear); Bilirubin, Urine Neg (Neg); Blood, Urine Neg (Neg); Color, Urine Yellow (P-Yellow); Glucose Qualitative, Urine Neg (Neg); Ketones, Urine Neg (Neg); Leukocyte Esterase, Urine 1+ (Neg); Nitrite, Urine Neg (Neg); Protein, Urine Neg (Neg); Urobilinogen, Urine NORM (Normal)
[2022-10-26 21:36] LABS: Bacteria Few /hpf; Red Blood Cells, Urine 0-2 /hpf (0-2); Squamous Epithelial Cells Not Seen /hpf (Few); White Blood Cells, Urine 0-2 /hpf (0-5)
[2022-10-26] MEDS ORDERED: ACET325 PO (21:37)
--- NOTE | 2022-10-26 23:12 | NUR ---
NOTIFIED BY TELE MONITOR THAT PT IS RUNNING BIGEMINY 20% OF TIME.
[2022-10-27 02:26] LABS: Adenovirus F 40/41 Not Detected (NOT DETECT); Campylobacter Sp Not Detected (NOT DETECT); Cryptosporidium Not Detected (NOT DETECT); Cyclospora Cayetanensis Not Detected (NOT DETECT); E. Coli O157 Not Detected (NOT DETECT); Entamoeba Histolytica Not Detected (NOT DETECT); Enteroaggregative E. coli-EAEC Not Detected (NOT DETECT); Enteropathogenic E. coli-EPEC Not Detected (NOT DETECT); Enterotoxigenic E. coli-ETEC Not Detected (NOT DETECT); Giardia Lamblia Not Detected (NOT DETECT); Plesiomonas Shigelloides Not Detected (NOT DETECT); Salmonella Sp Not Detected (NOT DETECT); Shiga Toxin-prod E. coli-STEC Not Detected (NOT DETECT); Shigella/Enteroin E. coli-EIEC Not Detected (NOT DETECT); Vibrio Cholerae Not Detected (NOT DETECT); Vibrio Sp Not Detected (NOT DETECT); Yersinia Enterocolitica Not Detected (NOT DETECT)
[2022-10-27 02:27] LABS: Astrovirus Not Detected (NOT DETECT); Norovirus GI/GII Not Detected (NOT DETECT); Rotavirus A Not Detected (NOT DETECT); Sapovirus Not Detected (NOT DETECT)
--- NOTE | 2022-10-27 04:09 | NUR ---
SHIFT SUMMARY NOC PT A/O X 4. NEW ADMIT FOR TIA THAT RESOLVED. PT HAD SIGNIFICANTLY ELEVATED BP AND PRN HYDRALAZINE FOR SYSTOLIC GREATER THAN 180. IT WAS NOT NEEDED BECAUSE PT BP 155/95 AND 139/85. PT WAS DIAGNOSED WITH COLITIS AND GI PANEL WAS ORDERED FOR WATERY STOOLS WHICH CAME BACK POSITIVE FOR C DIFF. PT NOW ON CONTACT ISOLATION WITH PO VANCOMYCIN 125 MG ORDERED Q6. PT IS ON TELE RUNNING SINUS RHYTHM @ 94 BPM. PT HAS ECHO SCHEDULED FOR 10/27/22 WELL (VAS) STROKE PANEL. PALLIATIVE CARE WELL PT/OT CONSULTS ALSO SCHEDULED. PT HAD L HIP SURGERY 10/23/[address]. PT HAS BEEN PLEASANT AND COOPERATIVE WITH CARE. PT IS CURRENTLY RESTING WITH BED IN LOWEST POSITION, AND CALL LIGHT WITHIN REACH. TM.
[2022-10-27 05:23] LABS: Hematocrit 30.9 % (33.0-51.0); Hemoglobin 9.9 g/dL (11.5-16.0); Mean Corpuscular HGB 30.6 pg (26.0-34.0); Mean Corpuscular Volume 95 fL (80-100); Mean Platelet Volume 10.9 fL (9.1-12.4); NRBC ABSOLUTE 0.02 K/mm3 (0.00-0.02); NRBC Auto 0.2 /100 WBC (0.0-0.2); Platelet Count 342 K/mm3 (150-400); RDW Coefficient Variation 14.6 % (11.7-14.2); RDW Standard Deviation 50.6 fL (35.1-46.3); Red Blood Cell Count 3.24 M/mm3 (3.80-5.20); White Blood Cell Count 12.29 K/mm3 (4.00-11.30)
[2022-10-27 05:47] LABS: BAND PERCENT MAN 14 % (0-8); BASOPHILS PERCENT MAN 0 % (0-2); EOSINOPHILS PERCENT MAN 0 % (0-6); LYMPHOCYTES ABSOLUTE MAN 1.35 K/mm3 (0.84-5.20); LYMPHOCYTES PERCENT MAN 11 % (21-46); MONOCYTES PERCENT MAN 9 % (4-13); MYELOCYTE ABSOLUTE MAN 0.12 K/mm3 (0.00-0.00); MYELOCYTE PERCENT MAN 1 % (0-0); SEG NEUTROPHILS PERCENT MAN 65 % (41-73); TOTAL CELLS COUNTED 100
[2022-10-27 06:09] LABS: Albumin, Blood 1.9 g/dL (3.4-5.0); Albumin/Globulin Ratio 0.5 (0.8-1.8); Bilirubin, Total 1.2 mg/dL (0.1-1.0); Bun/Creatinine Ratio 46.2 (12.0-20.0); Calcium, Blood 8.4 mg/dL (8.5-10.1); Creatinine, Blood 0.69 mg/dL (0.40-1.00); Globulin, Blood 3.5 g/dL (2.2-4.0); Potassium, Blood 4.2 mmol/L (3.5-5.5); Total Protein, Blood 5.4 g/dL (6.4-8.2)
--- NOTE | 2022-10-27 17:32 | NUR ---
SHIFT SUMMARY PT AXO X4 THOUGH WHEN SHE STATES THE YEAR SAYS "[birth year]23." PT SLOW TO RESPOND WHEN PHYSICAL THERAPY WAS WORKING WITH PATIENT BUT HAS OTHERWISE BEEN APPROPRIATE WITH COMMUNICATION THROUGHOUT THE DAY. PT WAS COMPLAINING OF FEELING "DIZZY" WHEN STANDING. PT IV PATENT AND INFUSING PER EMAR. PT WAS GIVEN GATORADE AND TOLERATED VERY WELL. PT BM'S APPEAR TO CONTAIN SOME OLD BLOOD/ BROWNISH COLOR THOUGH LIQUID STOOL. WILL CONTINUE TO MONITOR. ON TELE, RUNNING SINUS RHYTHM 80'S-90'S THROUGHOUT THE DAY BUT TACHING UP TO 119 AT TIMES. BED IN LOW POSITION, CALL LIGHT WITHIN REACH.
--- NOTE | 2022-10-28 04:50 | NUR ---
SHIFT SUMMARY NOC PT A/O X 4. SLOW TO RESPOND BUT RESPONDS APPROPRIATELY. WENT TO CHECK ON PT NS BAG AND PT SAID THEY WERE HAVING SOB. UPON ASSESSMENT PT SPO2 WAS 93*94% ON RA, BUT UPON AUSCULTATION PT HAD SOME WHEEZING AND CRACKLES NOTED. FLUIDS WERE STOPPED AND PT DISCONNECTED FROM [facility]MP. RT WAS CALLED AND CONCURED WITH ASSESSMENT. HOSPITALIST WAS NOTIFIED AND IV LASIX 40 MG ONCE WAS ORDERED. PT HAD PUREWICK PLACED FOR DIURESIS. PT ALSO STARTED TO COUGH UP THICK YELLOW PHLEGM AND SPECIMAN CUP IS AT BEDSIDE TO COLLECT A SAMPLE FOR POSSIBLE ANAYLYSIS. PT ON TELE AT SINUS TACH @ 107 BPM. PT IS CURRENTLY RESTING WITH BED IN LOWEST POSITION, AND CALL LIGHT WITHIN REACH. WCTM.
[2022-10-28 05:27] LABS: BASOPHILS ABSOLUTE AUTO 0.03 K/mm3 (0.00-0.23); BASOPHILS PERCENT AUTO 0 % (0-2); Hematocrit 25.9 % (33.0-51.0); Hemoglobin 8.4 g/dL (11.5-16.0); LYMPHOCYTES ABSOLUTE AUTO 1.04 K/mm3 (0.84-5.20); LYMPHOCYTES PERCENT AUTO 11 % (21-46); MONOCYTES PERCENT AUTO 15 % (4-13); Mean Corpuscular HGB 31.1 pg (26.0-34.0); Mean Corpuscular HGB Conc 32.4 g/dL (31.5-36.5); Mean Corpuscular Volume 96 fL (80-100); Mean Platelet Volume 10.4 fL (9.1-12.4); NRBC ABSOLUTE 0.02 K/mm3 (0.00-0.02); NRBC Auto 0.2 /100 WBC (0.0-0.2); Platelet Count 323 K/mm3 (150-400); RDW Coefficient Variation 14.7 % (11.7-14.2); White Blood Cell Count 9.14 K/mm3 (4.00-11.30)
[2022-10-28 05:34] LABS: EOSINOPHILS ABSOLUTE AUTO 0.04 K/mm3 (0.00-0.68); EOSINOPHILS PERCENT AUTO 0 % (0-6); IMMATURE GRAN ABSOLUTE AUTO 0.06 K/mm3 (0.00-0.10); IMMATURE GRAN PERCENT AUTO 1 % (0-1); NEUTROPHILS ABSOLUTE AUTO 6.57 K/mm3 (1.96-9.15); NEUTROPHILS PERCENT AUTO 72 % (41-73)
[2022-10-28 06:04] LABS: BAND PERCENT MAN 9 % (0-8); BASOPHILS PERCENT MAN 0 % (0-2); EOSINOPHILS ABSOLUTE MAN 0.09 K/mm3 (0.00-0.68); EOSINOPHILS PERCENT MAN 1 % (0-6); LYMPHOCYTES ABSOLUTE MAN 1.55 K/mm3 (0.84-5.20); LYMPHOCYTES PERCENT MAN 17 % (21-46); MONOCYTES PERCENT MAN 11 % (4-13); NEUTROPHILS ABSOLUTE MAN 6.48 K/mm3 (1.96-9.15); SEG NEUTROPHILS PERCENT MAN 62 % (41-73); TOTAL CELLS COUNTED 100
[2022-10-28 06:12] LABS: Albumin, Blood 1.9 g/dL (3.4-5.0); Anion Gap 7 mmol/L (6-16); Blood Urea Nitrogen 24 mg/dL (8-24); Bun/Creatinine Ratio 36.4 (12.0-20.0); CO2, Blood 24 mmol/L (21-32); Calcium, Blood 8.8 mg/dL (8.5-10.1); Chloride, Blood 110 mmol/L (98-108); Creatinine, Blood 0.66 mg/dL (0.40-1.00); Glomerular Filtration Rate 85 (60-); Glucose, Blood 113 mg/dL (70-99); Magnesium, Blood 1.8 mg/dL (1.6-2.4); Phosphorus, Blood 2.8 mg/dL (2.5-4.9); Potassium, Blood 3.6 mmol/L (3.5-5.5); Sodium, Blood 141 mmol/L (136-145)
[2022-10-28] MEDS ORDERED: CLOP75 PO (15:00)
[2022-10-28] MEDS ORDERED: VANCOCIN HCL125 MG PO (15:01)
[2022-10-28 15:53] LABS: SARS-Cov-2 (COVID-19) PCR, MMC NEGATIVE (NEGATIVE)
--- NOTE | 2022-10-28 16:49 | NUR ---
DC TO REHAB PIV DC'D WITH CATH TIP INTACT, NO REDNESS OR SWELLING NOTED. NOTIFIED OTHER SPATIAL SCIENTIST OF PT'S DC AND REMOVAL OF TELE MONITOR. TRANSPORT VIA W/C BY [facility]. PT WITH ALL PERSONAL BELONGINGS.
== END 2022-10-28 17:05 ==
LOC: ER 15:27 → MEDS 20:35
PROVIDERS: Emergency Medicine; Family Medicine; Internal Medicine; Student in an Organized Health Care Education/Training Program; ADMIT Internal Medicine
DX: G45.9 Transient cerebral ischemic attack, unspecified (principal); A04.72 Enterocolitis due to Clostridium difficile, not specified as recurrent; I10 Essential (primary) hypertension; E03.9 Hypothyroidism, unspecified; E78.5 Hyperlipidemia, unspecified; I25.10 Atherosclerotic heart disease of native coronary artery without angina pectoris; S72.002D Fracture of unspecified part of neck of left femur, subsequent encounter for closed fracture with routine healing; W19.XXXD Unspecified fall, subsequent encounter; Z20.822 Contact with and (suspected) exposure to COVID-19; Z88.0 Allergy status to penicillin; Z88.1 Allergy status to other antibiotic agents; Z88.8 Allergy status to other drugs, medicaments and biological substances; Z79.899 Other long term (current) drug therapy; Z79.82 Long term (current) use of aspirin
CPT/HCPCS: 36415; 51701; 70450; 71045; 74177; 80053; 80069; 81001; 83735; 83880; 85025; 87086; 87324; 87507; 93005; 93010; 93306; 93880; 96372; 96374-59; 96375; 97116-CQ; 97162; 97166; 97530; 97530-CQ; 97535; 99285-25; A9270; G0378; J1650; J1940; J2405; J3010; J7030; P9612; Q9967; U0004

== ENCOUNTER 2023-01-20 13:49 | Emergency (ER) | payer OTHER, MEDICARE ==
[~2023-01-20] VITALS: Ht 162.6 cm; Wt 45.4 kg
[~2023-01-20 13:49] MED LIST changes: +ACET325 PO; +CLOP75 PO; +VANCOCIN HCL125 MG PO
[2023-01-20 18:00] VITALS: BP 190/82
== END 2023-01-20 18:24 | disposition home or self-care (01) ==
LOC: ER 13:49
DX: S51.811A Laceration without foreign body of right forearm, initial encounter (principal); S00.83XA Contusion of other part of head, initial encounter; W01.10XA Fall on same level from slipping, tripping and stumbling with subsequent striking against unspecified object, initial encounter; Z23 Encounter for immunization; Z88.0 Allergy status to penicillin; Z88.8 Allergy status to other drugs, medicaments and biological substances; Z88.1 Allergy status to other antibiotic agents; Z79.899 Other long term (current) drug therapy; Z79.82 Long term (current) use of aspirin; I25.10 Atherosclerotic heart disease of native coronary artery without angina pectoris; I10 Essential (primary) hypertension; E03.9 Hypothyroidism, unspecified; D64.9 Anemia, unspecified
CPT/HCPCS: 70450; 90471; 90714; 99284-25

== ENCOUNTER 2023-03-16 21:08 | Inpatient (IN) | payer MEDICARE, OTHER ==
[~2023-03-16] VITALS: Ht 162.6 cm; Wt 49.9 kg
[2023-03-16 21:26] LABS: BASOPHILS ABSOLUTE AUTO 0.02 K/mm3 (0.00-0.23); BASOPHILS PERCENT AUTO 0 % (0-2); EOSINOPHILS ABSOLUTE AUTO 0.05 K/mm3 (0.00-0.68); EOSINOPHILS PERCENT AUTO 1 % (0-6); Hematocrit 38.4 % (33.0-51.0); Hemoglobin 12.1 g/dL (11.5-16.0); IMMATURE GRAN ABSOLUTE AUTO 0.03 K/mm3 (0.00-0.10); IMMATURE GRAN PERCENT AUTO 0 % (0-1); LYMPHOCYTES ABSOLUTE AUTO 0.93 K/mm3 (0.84-5.20); LYMPHOCYTES PERCENT AUTO 11 % (21-46); MONOCYTES PERCENT AUTO 7 % (4-13); Mean Corpuscular HGB 30.6 pg (26.0-34.0); Mean Corpuscular HGB Conc 31.5 g/dL (31.5-36.5); Mean Corpuscular Volume 97 fL (80-100); Mean Platelet Volume 10.7 fL (9.1-12.4); NEUTROPHILS ABSOLUTE AUTO 7.22 K/mm3 (1.96-9.15); NEUTROPHILS PERCENT AUTO 82 % (41-73); Platelet Count 267 K/mm3 (150-400); RDW Coefficient Variation 20.5 % (11.7-14.2); RDW Standard Deviation 72.2 fL (35.1-46.3); Red Blood Cell Count 3.96 M/mm3 (3.80-5.20); White Blood Cell Count 8.85 K/mm3 (4.00-11.30)
[2023-03-16 21:45] LABS: Bun/Creatinine Ratio 32.9 (12.0-20.0); Calcium, Blood 8.3 mg/dL (8.5-10.1); Creatinine, Blood 0.73 mg/dL (0.40-1.00); Potassium, Blood 4.2 mmol/L (3.5-5.5)
[2023-03-16 22:28] LABS: Albumin/Globulin Ratio 0.8 (0.8-1.8); Bilirubin, Direct 0.1 mg/dL (0.0-0.3); Bilirubin, Indirect 0.3 mg/dL (0.1-0.7); Bilirubin, Total 0.4 mg/dL (0.1-1.0); Globulin, Blood 3.7 g/dL (2.2-4.0); Total Protein, Blood 6.7 g/dL (6.4-8.2)
[2023-03-17] VITALS (14 sets, daily range): BP systolic 100–149; BP diastolic 62–79
[2023-03-17] MEDS ORDERED: FERROUS SULFAT325 M3 PO (00:17)
[2023-03-17] MEDS ORDERED: ASCO500 (00:19)
[2023-03-17] MEDS ORDERED: IBUP200 (00:20)
[2023-03-17 00:49] LABS: Source, Urine Foley catheter
[2023-03-17 00:52] LABS: Bilirubin, Urine Neg (Neg); Blood, Urine Neg (Neg); Glucose Qualitative, Urine Neg (Neg); Ketones, Urine Neg (Neg); Leukocyte Esterase, Urine 2+ (Neg); Nitrite, Urine Neg (Neg); Protein, Urine Neg (Neg); Specific Gravity, Urine 1.015 (1.003-1.022); Urobilinogen, Urine NORM (Normal)
[2023-03-17 01:05] LABS: Appearance, Urine Hazy (Clear); Bacteria Many /hpf; Color, Urine Pale Yellow (P-Yellow); Red Blood Cells, Urine Not Seen /hpf (0-2); Squamous Epithelial Cells Not Seen /hpf (Few); White Blood Cells, Urine 25-50 /hpf (0-5)
--- NOTE | 2023-03-17 01:25 | NUR ---
ARRIVAL PT NEW ADMIT FROM ER W/ R HIP FX. ARRIVED IN NO DISTRESSED, A/OX3-4. UNCLEAR ABOUT SOME HEALTH HISTORY. RLE IS SHORTENED AND EXTERNALLY ROTATED. PT REPORTS FULL SENSATION, CAN MOVE EXTREMITY ON COMMAND. SURGICAL CONSULT PLACED BY ER. JOYCE PLACED UPON ARRIVAL, ORDER OBTAINED. VSS. PT MEDICATED FOR PAIN. TELE IN PLACE, SR 80'S
--- NOTE | 2023-03-17 05:14 | NUR ---
SHIFT SUMMARY VSS, TELE READS SR 73. PT SLEPT WELL T/O THE NIGHT. JOYCE IN PLACE, DRAINING YELLOW CLOUDY URINE. MEDICATED FOR PAIN WTIH MORPHINE, GOOD RESULTS NOTED. SENSATION AND CIRCULATION REMAINS INTACT IN RLE. PT CAN MOVE LEG ON COMMAND. NO ACUTE EVENTS T/O THE NIGHT. PT HAS REMAINED NPO SINCE ARRIVAL FOR SURGERY THIS AM. THE PATIENT IS CURRENTLY SLEEPING, IN NO DISTRESS, CALL LIGHT IN REACH
[2023-03-17 05:57] LABS: Albumin, Blood 2.9 g/dL (3.4-5.0); Albumin/Globulin Ratio 0.9 (0.8-1.8); Bilirubin, Total 0.5 mg/dL (0.1-1.0); Bun/Creatinine Ratio 34.5 (12.0-20.0); Creatinine, Blood 0.61 mg/dL (0.40-1.00); Globulin, Blood 3.2 g/dL (2.2-4.0); Potassium, Blood 4.1 mmol/L (3.5-5.5); Total Protein, Blood 6.1 g/dL (6.4-8.2)
[2023-03-17 06:33] LABS: BASOPHILS ABSOLUTE AUTO 0.02 K/mm3 (0.00-0.23); BASOPHILS PERCENT AUTO 0 % (0-2); EOSINOPHILS ABSOLUTE AUTO 0.03 K/mm3 (0.00-0.68); EOSINOPHILS PERCENT AUTO 0 % (0-6); Hematocrit 34.9 % (33.0-51.0); IMMATURE GRAN ABSOLUTE AUTO 0.03 K/mm3 (0.00-0.10); IMMATURE GRAN PERCENT AUTO 0 % (0-1); LYMPHOCYTES ABSOLUTE AUTO 1.01 K/mm3 (0.84-5.20); LYMPHOCYTES PERCENT AUTO 12 % (21-46); MONOCYTES ABSOLUTE AUTO 0.69 K/mm3 (0.16-1.47); MONOCYTES PERCENT AUTO 8 % (4-13); Mean Corpuscular HGB 30.5 pg (26.0-34.0); Mean Corpuscular HGB Conc 31.5 g/dL (31.5-36.5); Mean Corpuscular Volume 97 fL (80-100); Mean Platelet Volume 10.9 fL (9.1-12.4); NEUTROPHILS ABSOLUTE AUTO 6.72 K/mm3 (1.96-9.15); NEUTROPHILS PERCENT AUTO 79 % (41-73); Platelet Count 226 K/mm3 (150-400); RDW Coefficient Variation 20.6 % (11.7-14.2); RDW Standard Deviation 71.7 fL (35.1-46.3); Red Blood Cell Count 3.61 M/mm3 (3.80-5.20)
--- NOTE | 2023-03-17 13:29 | NUR ---
FLUSHED LAC IV SITE;PATENT.
--- NOTE | 2023-03-17 17:48 | NUR ---
SHIFT SUMMARY PT A&OX4, VSS/2LNC, WAKES EASILY/DROWSY S/P @ 1640 R ANKIT HIP, EXOFIN DRESSING DRY/INTACT, WIGGLES TOES, SCDS/TEDS ON, JOYCE PATENT & DRAINING YELLOW URINE, STAT LOCK ON. WILL REPORT TO ONCOMING SUSAN STANTON.
[2023-03-18 04:09] VITALS: BP 135/85
--- NOTE | 2023-03-18 05:59 | NUR ---
SHIFT SUMMARY POD #1 R.HIP ANKIT PT IS A&O X3 THIS AM, SHE DID HAVE SOME CONFUSION DURING THE NIGHT, SHE THOUGHT SHE WAS AT HOME AND DIDN'T REMEMBER WHAT HAPPENED OR THE SURGERY, PT REORIENTED PRN, SHE IS ABLE TO RECALL EVENTS THIS AM, BED ALARM IS ON FOR SAFETY, VSS, MATERNITY FLOOR SUPERVISOR REPORTS BIGEMINY POST OP, DENIES CP/PRESSURE, DENIES PAIN AT REST IN R.HIP, PT ASYMPTOMATIC, RESP UNLABORED, SPO2 >95% ON RA, CLEAR SURGICAL DRSG REMAINS C/D/I, SMALL SIPS OF WATER GIVEN THROUGH THE NIGHT, PT HAS A SPEECH EVAL SCHEDULED TODAY, CLEAR YLLEOW URINE NOTED IN JOYCE, PATENT, BELOW BLADDER, Q2 TURNS PROVIDED, CALL LIGHT IN REACH, WCTM & REPORT TO DAY RN.
[2023-03-18 06:11] LABS: Hematocrit 31.3 % (33.0-51.0); Hemoglobin 9.9 g/dL (11.5-16.0); Mean Corpuscular HGB 30.3 pg (26.0-34.0); Mean Corpuscular HGB Conc 31.6 g/dL (31.5-36.5); Mean Corpuscular Volume 96 fL (80-100); Mean Platelet Volume 11.3 fL (9.1-12.4); Platelet Count 216 K/mm3 (150-400); RDW Standard Deviation 72.6 fL (35.1-46.3); Red Blood Cell Count 3.27 M/mm3 (3.80-5.20); White Blood Cell Count 9.46 K/mm3 (4.00-11.30)
[2023-03-18 06:57] LABS: Bun/Creatinine Ratio 27.2 (12.0-20.0); Calcium, Blood 7.5 mg/dL (8.5-10.1); Creatinine, Blood 0.59 mg/dL (0.40-1.00); Potassium, Blood 4.3 mmol/L (3.5-5.5)
[2023-03-18 07:27] VITALS: BP 158/90
[2023-03-18 08:11] LABS: BASOPHILS PERCENT MAN 0 % (0-2); EOSINOPHILS PERCENT MAN 0 % (0-6); LYMPHOCYTES ABSOLUTE MAN 0.37 K/mm3 (0.84-5.20); LYMPHOCYTES PERCENT MAN 4 % (21-46); MONOCYTES ABSOLUTE MAN 0.28 K/mm3 (0.16-1.47); MONOCYTES PERCENT MAN 3 % (4-13); NEUTROPHILS ABSOLUTE MAN 8.79 K/mm3 (1.96-9.15); SEG NEUTROPHILS PERCENT MAN 93 % (41-73); TOTAL CELLS COUNTED 100
--- NOTE | 2023-03-18 13:10 | NUR ---
FC d/c'd at this time. 300 cc clear yellow urine. Tolerated well
--- NOTE | 2023-03-18 14:23 | NUR ---
Pt. is awake and sitting in a recliner when she welcomes my visit. Family members are present. Pt. is pleasant and I facilitated a life review. Pt. displays evidence of being aware and engaged. Considered matters of lisa and belief and established rapport. Pt. verbalized that she expected to be discharged to a SNF so I normalized the Pt. experience. Prayed with Pt. Pt. verbalized gratitude for the spiritual care visit and welcomed this filter plant supervisor to return.
[2023-03-18 16:05] VITALS: BP 156/83
--- NOTE | 2023-03-18 17:34 | NUR ---
SHIFT SUMMARY PT A&OX4, VSS/RA, MARIAH PO-SOFT BITE SIZE/NECTOR THICK LIQUID, VOIDING/BSC, PAIN MANAGED WITH ULTRAM, AMB 1 PP MOD ASSIST W/FWW & GB/UP TO CHAIR. WILL REPORT TO ONCOMING NOC RN.
--- NOTE | 2023-03-18 17:43 | NUR ---
TELEPHONE CALL TO HOSPITALIST EFT DR URIOSTEGUI RE DVT PROPHYLAXIS. NEW ORDER FOR LOVENOX DAILY 40 MG, START NOW.
[2023-03-18 20:48] VITALS: BP 136/77
[2023-03-19 03:36] VITALS: BP 159/94
--- NOTE | 2023-03-19 04:27 | NUR ---
EOS NOTE: PATIENT IS A/OX4, VERY WOBBLY AND UNSTEADY WITH USE OF FWW/GB. RN/GLUE SPREADING MACHINE OPERATOR BOTH HANDS ON DURING ALL TRANSFERS, PT COULD BE TRANSFERED X1 ASSIST BUT IS VERY UNSTEADY AND NEEDS TO HAVE HANDS ON AT ALL TIMES. NSR ON TELE, TOOK PILLS WHOLE WITH APPLESAUCE. GOT UP TO A COMMODE MULTIPLE TIMES THROUGHOUT THE SHIFT. ONE LARGE BM THAT WAS BLACK, PATIENT TAKES IRON SUPPLEMENTS AT HOME AND STATED DARK STOOLS ARE BASELINE FOR HER. R HIP DRESSING IS C/D/I, NO SIGNS OR SYMPTOMS OF INFECTION AT THIS TIME. WILL CONTINUE TO MONITOR.
[2023-03-19 07:55] VITALS: BP 157/102
[2023-03-19 07:56] VITALS: BP 161/84
[2023-03-19 11:55] LABS: SARS-Cov-2 (COVID-19) PCR, MMC NEGATIVE (NEGATIVE)
[2023-03-19 12:37] VITALS: BP 142/73
--- NOTE | 2023-03-19 13:04 | NUR ---
DISCHARGE PATIENT CLEARED TO DISCHARGE TO SNF. PATIENT AMBULATING W/ 1P MIN/MOD ASSIST W/ FWW & GB. PAIN MANAGED WELL PER EMAR. POD 2 R ANKIT HIP, PRENIO DRESSING TO RIGHT HIP, C/D/I. PATIENT EATING, DRINKING, & VOIDING WELL. REPORT [facility] TO [facility] STARR AT [facility]. FAMILY TRANSPORTING PATIENT, ESCORTED OUT VIA W/C.
== END 2023-03-19 12:55 | DRG 521 ==
LOC: ER 21:08 → SURS 21:09
PROVIDERS: Emergency Medicine; Family Medicine; Internal Medicine; Orthopaedic Surgery; ADMIT Internal Medicine
PROC: 0SRR0JA Replacement of Right Hip Joint, Femoral Surface with Synthetic Substitute, Uncemented, Open Approach (ICD-10-PCS; principal; 2023-03-17 14:00)
DX: S72.041A Displaced fracture of base of neck of right femur, initial encounter for closed fracture (principal); E43 Unspecified severe protein-calorie malnutrition; R65.10 Systemic inflammatory response syndrome (SIRS) of non-infectious origin without acute organ dysfunction; Z68.1 Body mass index [BMI] 19.9 or less, adult; W18.30XA Fall on same level, unspecified, initial encounter; M81.0 Age-related osteoporosis without current pathological fracture; H40.9 Unspecified glaucoma; I25.10 Atherosclerotic heart disease of native coronary artery without angina pectoris; J45.909 Unspecified asthma, uncomplicated; I10 Essential (primary) hypertension; E03.9 Hypothyroidism, unspecified; D64.9 Anemia, unspecified; G62.9 Polyneuropathy, unspecified; E87.8 Other disorders of electrolyte and fluid balance, not elsewhere classified; E78.5 Hyperlipidemia, unspecified; R79.89 Other specified abnormal findings of blood chemistry; Z98.890 Other specified postprocedural states; Z88.0 Allergy status to penicillin; Z79.2 Long term (current) use of antibiotics; Z79.02 Long term (current) use of antithrombotics/antiplatelets; Z88.1 Allergy status to other antibiotic agents; Z79.899 Other long term (current) drug therapy; Z88.8 Allergy status to other drugs, medicaments and biological substances; Z79.82 Long term (current) use of aspirin; Z79.890 Hormone replacement therapy
CPT/HCPCS: 36415; 72170; 73502; 80048; 80053; 80076; 81001; 85025; 87077; 87086; 87186; 92610; 94760; 96374; 96375; 97110; 97116; 97161; 97166; 97530; 97535; 99285-25; A9270; C1776; J0171; J0690; J0735; J1100; J1650; J1885; J2270; J2371; J2405; J2704; J2795; J3010; J7050; J7120; U0002

== ENCOUNTER 2023-07-27 22:51 | Emergency (ER) | payer MEDICARE, OTHER ==
[~2023-07-27] VITALS: Ht 165.1 cm; Wt 49.9 kg
[~2023-07-27 22:51] MED LIST changes: +ASCO500; +FERROUS SULFAT325 M3 PO; +IBUP200
[2023-07-27 23:21] LABS: Source, Urine Fem Cath
[2023-07-27 23:23] LABS: Bilirubin, Urine Neg (Neg); Blood, Urine Neg (Neg); Glucose Qualitative, Urine Neg (Neg); Ketones, Urine Neg (Neg); Leukocyte Esterase, Urine 1+ (Neg); Nitrite, Urine Neg (Neg); Protein, Urine 1+ (Neg); Specific Gravity, Urine 1.015 (1.003-1.022); Urobilinogen, Urine NORM (Normal)
[2023-07-27 23:31] LABS: BASOPHILS ABSOLUTE AUTO 0.01 K/mm3 (0.00-0.23); BASOPHILS PERCENT AUTO 0 % (0-2); EOSINOPHILS ABSOLUTE AUTO 0.01 K/mm3 (0.00-0.68); EOSINOPHILS PERCENT AUTO 0 % (0-6); Hematocrit 36.6 % (33.0-51.0); Hemoglobin 11.8 g/dL (11.5-16.0); IMMATURE GRAN ABSOLUTE AUTO 0.03 K/mm3 (0.00-0.10); IMMATURE GRAN PERCENT AUTO 1 % (0-1); LYMPHOCYTES ABSOLUTE AUTO 0.66 K/mm3 (0.84-5.20); LYMPHOCYTES PERCENT AUTO 10 % (21-46); MONOCYTES ABSOLUTE AUTO 0.55 K/mm3 (0.16-1.47); MONOCYTES PERCENT AUTO 9 % (4-13); Mean Corpuscular HGB 32.2 pg (26.0-34.0); Mean Corpuscular HGB Conc 32.2 g/dL (31.5-36.5); Mean Corpuscular Volume 100 fL (80-100); Mean Platelet Volume 10.5 fL (9.1-12.4); NEUTROPHILS ABSOLUTE AUTO 5.09 K/mm3 (1.96-9.15); NEUTROPHILS PERCENT AUTO 80 % (41-73); Platelet Count 361 K/mm3 (150-400); RDW Coefficient Variation 14.3 % (11.7-14.2); RDW Standard Deviation 52.1 fL (35.1-46.3); Red Blood Cell Count 3.67 M/mm3 (3.80-5.20); White Blood Cell Count 6.35 K/mm3 (4.00-11.30)
[2023-07-27 23:35] LABS: Appearance, Urine Clear (Clear); Color, Urine Yellow (P-Yellow)
[2023-07-27 23:36] LABS: Bacteria Rare /hpf; Hyaline Casts 0-2 /lpf (0-2); Red Blood Cells, Urine Not Seen /hpf (0-2); Squamous Epithelial Cells Rare /hpf (Few); Transitional Epithelial Cells Few /hpf (0-Rare)
[2023-07-27 23:55] LABS: Albumin, Blood 2.9 g/dL (3.4-5.0); Albumin/Globulin Ratio 0.7 (0.8-1.8); Bilirubin, Total 0.5 mg/dL (0.1-1.0); Bun/Creatinine Ratio 28.5 (12.0-20.0); Calcium, Blood 9.5 mg/dL (8.5-10.1); Creatinine, Blood 0.84 mg/dL (0.40-1.00); Globulin, Blood 3.9 g/dL (2.2-4.0); Magnesium, Blood 2.1 mg/dL (1.6-2.4); Potassium, Blood 4.5 mmol/L (3.5-5.5); Total Protein, Blood 6.8 g/dL (6.4-8.2)
[2023-07-27] MEDS ORDERED: MEMA5TAB PO (23:57)
[2023-07-27] MEDS ORDERED: SULTRIDS PO (23:58)
[2023-07-27] MEDS ORDERED: DULCOLAX400 MG/5 M PO (23:58)
[2023-07-27] MEDS ORDERED: MYLANTA MAXIMUM10 ML PO (23:59)
[2023-07-27] MEDS ORDERED: BISA10S PR (23:59)
[2023-07-28 00:27] LABS: Influenza A, PCR NEGATIVE (NEGATIVE); Influenza B, PCR NEGATIVE (NEGATIVE); Resp Syncytial Virus, PCR NEGATIVE (NEGATIVE); SARS-Cov-2 (COVID-19) PCR, MMC NEGATIVE (NEGATIVE)
[2023-07-28] MEDS ORDERED: NITR100CA PO (02:59)
[2023-07-28 03:30] VITALS: BP 162/77
== END 2023-07-28 03:40 | disposition home or self-care (01) ==
LOC: ER 22:51
PROVIDERS: Student in an Organized Health Care Education/Training Program
DX: N39.0 Urinary tract infection, site not specified (principal); R51.9 Headache, unspecified; Z20.822 Contact with and (suspected) exposure to COVID-19; Z88.0 Allergy status to penicillin; Z88.8 Allergy status to other drugs, medicaments and biological substances; Z88.1 Allergy status to other antibiotic agents; Z79.899 Other long term (current) drug therapy; Z79.82 Long term (current) use of aspirin; I25.10 Atherosclerotic heart disease of native coronary artery without angina pectoris; J45.909 Unspecified asthma, uncomplicated; I10 Essential (primary) hypertension; E03.9 Hypothyroidism, unspecified; D64.9 Anemia, unspecified
CPT/HCPCS: 0241U; 70450; 71045; 80053; 81001; 83735; 85025; 87086; 93005; 93010; 99284-25; P9612

== ENCOUNTER 2023-08-20 20:53 | Emergency (ER) | payer MEDICARE, OTHER ==
[~2023-08-20] VITALS: Ht 162.6 cm; Wt 43.1 kg
[~2023-08-20 20:53] MED LIST changes: +BISA10S PR; +DULCOLAX400 MG/5 M PO; +MEMA5TAB PO; +MYLANTA MAXIMUM10 ML PO; +NITR100CA PO; +SULTRIDS PO
[2023-08-20 22:35] VITALS: BP 136/78
== END 2023-08-20 22:36 | disposition home or self-care (01) ==
LOC: ER 20:53
DX: S81.812A Laceration without foreign body, left lower leg, initial encounter (principal); I10 Essential (primary) hypertension; I25.10 Atherosclerotic heart disease of native coronary artery without angina pectoris; J45.909 Unspecified asthma, uncomplicated; E03.9 Hypothyroidism, unspecified; D64.9 Anemia, unspecified; M81.0 Age-related osteoporosis without current pathological fracture; H40.9 Unspecified glaucoma; Z79.82 Long term (current) use of aspirin; Z79.899 Other long term (current) drug therapy; Z88.0 Allergy status to penicillin; Z88.8 Allergy status to other drugs, medicaments and biological substances; W08.XXXA Fall from other furniture, initial encounter; Y92.039 Unspecified place in apartment as the place of occurrence of the external cause
CPT/HCPCS: 12004; 99283-25

== ENCOUNTER 2023-08-31 07:12 | Inpatient (IN) | payer MEDICARE, OTHER ==
[2023-08-31] VITALS (25 sets, daily range): BP systolic 71–114; BP diastolic 46–82
[~2023-08-31] VITALS: Ht 160 cm; Wt 41.8 kg
[2023-08-31 07:40] LABS: BASOPHILS ABSOLUTE AUTO 0.01 K/mm3 (0.00-0.23); BASOPHILS PERCENT AUTO 0 % (0-2); EOSINOPHILS PERCENT AUTO 0 % (0-6); Hematocrit 35.6 % (33.0-51.0); Hemoglobin 11.3 g/dL (11.5-16.0); IMMATURE GRAN ABSOLUTE AUTO 0.04 K/mm3 (0.00-0.10); IMMATURE GRAN PERCENT AUTO 0 % (0-1); LYMPHOCYTES ABSOLUTE AUTO 0.58 K/mm3 (0.84-5.20); LYMPHOCYTES PERCENT AUTO 5 % (21-46); MONOCYTES ABSOLUTE AUTO 0.66 K/mm3 (0.16-1.47); MONOCYTES PERCENT AUTO 5 % (4-13); Mean Corpuscular HGB 32.9 pg (26.0-34.0); Mean Corpuscular HGB Conc 31.7 g/dL (31.5-36.5); Mean Corpuscular Volume 104 fL (80-100); Mean Platelet Volume 9.9 fL (9.1-12.4); NEUTROPHILS ABSOLUTE AUTO 11.19 K/mm3 (1.96-9.15); NEUTROPHILS PERCENT AUTO 90 % (41-73); Platelet Count 395 K/mm3 (150-400); RDW Coefficient Variation 15.5 % (11.7-14.2); RDW Standard Deviation 59.3 fL (35.1-46.3); Red Blood Cell Count 3.43 M/mm3 (3.80-5.20); White Blood Cell Count 12.48 K/mm3 (4.00-11.30)
[2023-08-31 08:07] LABS: Albumin, Blood 2.7 g/dL (3.4-5.0); Albumin/Globulin Ratio 0.8 (0.8-1.8); Bilirubin, Total 0.4 mg/dL (0.1-1.0); Bun/Creatinine Ratio 45.3 (12.0-20.0); Calcium, Blood 8.3 mg/dL (8.5-10.1); Creatinine, Blood 0.51 mg/dL (0.40-1.00); Globulin, Blood 3.6 g/dL (2.2-4.0); Total Protein, Blood 6.3 g/dL (6.4-8.2)
[2023-08-31 09:56] LABS: Source, Urine Clean Catch
[2023-08-31 10:04] LABS: Appearance, Urine Clear (Clear); Bilirubin, Urine Neg (Neg); Blood, Urine Neg (Neg); Color, Urine Yellow (P-Yellow); Glucose Qualitative, Urine Neg (Neg); Ketones, Urine Neg (Neg); Leukocyte Esterase, Urine Neg (Neg); Nitrite, Urine Neg (Neg); Protein, Urine Neg (Neg); Specific Gravity, Urine 1.015 (1.003-1.022); Urobilinogen, Urine NORM (Normal); pH, Urine 6.5 (5.0-8.0)
--- NOTE | 2023-08-31 18:02 | NUR ---
ADMIT PT ARRIVED TO ICU 1 VIA ER BED AT 1730. PT IS AWAKE, ALERT, AND ORIENTED. PT ANSWERS QUESTIONS APPROPRIATELY. PT ARRIVED ON LEVOPHED 2 MCG/MIN INFUSING TO RIGHT AC IV. VITAL SIGNS STABLE. PT ON 2L O2 NC. PT WITH LACERATION TO LEFT LOWER EXTREMITY WITH DRESSING IN PLACE. WILL CONTINUE TO MONITOR AND REPORT OFF TO ONCOMING RN.
--- NOTE | 2023-08-31 19:58 | NUR ---
ASSUMPTION OF CARE: RECEIVED REPORT FROM MCKAYLA STANTON. PT ALERT AND ORIENTED TO TIME, PERSON, PLACE AND SITUATION. ABLE TO ANSWER QUESTIONS AND MAKE NEEDS KNOWN. PT ON 2L NC WITH SPO2 >95%. DENIES SOB. SIGNAL ENGINEER IN PLACE, ST WITH HR 110'S-120'S. LEVOPHED INFUSING AT 2 MCG/MIN TO MAINTAIN MAP >65. DENIES CHEST PAIN OR PRESSURE. PT ABLE TO SHIFT AROUND IN BED INDEPENDENTLY. TOLERATING PO INTAKE WELL. 1/2 NS INFUSING AT 250 ML/HR. PIV'S INTACT AND INFUSING. PT DENIES ANY PAIN. OLD LACERATION TO LEFT LOWER LEG, DRESSING C/D/I. CALL LIGHT IN REACH. BED LOW AND LOCKED.
[2023-09-01] VITALS (40 sets, daily range): BP systolic 74–163; BP diastolic 46–94
[2023-09-01 03:39] LABS: BASOPHILS ABSOLUTE AUTO 0.02 K/mm3 (0.00-0.23); BASOPHILS PERCENT AUTO 0 % (0-2); Hematocrit 26.3 % (33.0-51.0); Hemoglobin 8.4 g/dL (11.5-16.0); LYMPHOCYTES ABSOLUTE AUTO 0.75 K/mm3 (0.84-5.20); LYMPHOCYTES PERCENT AUTO 7 % (21-46); MONOCYTES ABSOLUTE AUTO 0.93 K/mm3 (0.16-1.47); MONOCYTES PERCENT AUTO 9 % (4-13); Mean Corpuscular HGB 33.2 pg (26.0-34.0); Mean Corpuscular HGB Conc 31.9 g/dL (31.5-36.5); Mean Corpuscular Volume 104 fL (80-100); Mean Platelet Volume 10.1 fL (9.1-12.4); Platelet Count 309 K/mm3 (150-400); RDW Coefficient Variation 15.9 % (11.7-14.2); RDW Standard Deviation 60.1 fL (35.1-46.3); Red Blood Cell Count 2.53 M/mm3 (3.80-5.20); White Blood Cell Count 10.34 K/mm3 (4.00-11.30)
[2023-09-01 03:42] LABS: EOSINOPHILS PERCENT AUTO 0 % (0-6); IMMATURE GRAN ABSOLUTE AUTO 0.04 K/mm3 (0.00-0.10); IMMATURE GRAN PERCENT AUTO 0 % (0-1); NEUTROPHILS PERCENT AUTO 83 % (41-73)
[2023-09-01 03:58] LABS: Anion Gap 5 mmol/L (6-16); Blood Urea Nitrogen 30 mg/dL (8-24); Bun/Creatinine Ratio 32.6 (12.0-20.0); CO2, Blood 26 mmol/L (21-32); Calcium, Blood 6.8 mg/dL (8.5-10.1); Chloride, Blood 111 mmol/L (98-108); Creatinine, Blood 0.92 mg/dL (0.40-1.00); Glomerular Filtration Rate 60 (60-); Glucose, Blood 109 mg/dL (70-99); Magnesium, Blood 1.7 mg/dL (1.6-2.4); Phosphorus, Blood 3.1 mg/dL (2.5-4.9); Potassium, Blood 3.9 mmol/L (3.5-5.5); Sodium, Blood 142 mmol/L (136-145)
--- NOTE | 2023-09-01 06:12 | NUR ---
SHIFT SUMMARY: PT REMAINS ALERT AND ORIENTED TO TIME, PERSON, PLACE AND SITUATION T/O THE SHIFT. PLEASANT AND COOPERATIVE WITH CARE, ABLE TO MAKE NEEDS KNOWN. PT ON 2L NC WITH SPO2 >95%. DENIES SOB. LUNG SOUNDS REMAIN CLEAR. SOLUTIONS CONSULTANT IN PLACE, SR/ST WITH HR 90'S-100'S. LEVOPHED TITRATED T/O THE SHIFT TO MAINTAIN MAP >65. CURRENTLY ON SB. PIV TO LAC, INFUSING 1/2 NS AT 50 ML/HR. PIV TO RAC, PATENT. VOIDING INCONTINENT YELLOW URINE T/O THE SHIFT. PUREWICK PLACED AT 0600. NO BM YET THIS SHIFT. DRESSING TO LEFT LOWER LEG REMAINS C/D/I. PT DENIES PAIN. CALL LIGHT IN REACH.
--- NOTE | 2023-09-01 07:00 | NUR ---
ASSUME CARE: I have assumed care of this patient.
--- NOTE | 2023-09-01 09:40 | NUR ---
FAMILY UPDATE: Pt's son and [id number] updated via telephone. Their questions were answered and they were notified of likely medical floor transfer.
--- NOTE | 2023-09-01 12:21 | NUR ---
MEDICATION: Mike Rosas called for updated medication list.
[2023-09-01] MEDS ORDERED: THERA-D2000 UNIT PO (13:20)
--- NOTE | 2023-09-01 15:16 | NUR ---
SHIFT/TRANSFER SUMMARY: Pt transferred to medical floor room 340 from ICU 1. Report was called to medical RN and she was taken up via wheelchair. Pt's son called and updated. Michelle has worked with PT/ST today. Loco has been working well. She repositions herself in bed.
--- NOTE | 2023-09-02 04:03 | NUR ---
ADMINISTRATIVE SECRETARY SUMMARY BP ELEVATED AND HR ST, OTHERWISE VSS. LUNG SOUNDS DIMINISHED IN THE BASES PER AUSCULTATION. AWAITING ANOTHER SPUTUM SAMPLE TO BE SENT TO LAB, PREVIOUS ONE WAS CONTAMINATED. PUREWICK IN USE FOR INCONTINENCE. HAS BEEN RESTING QUEITLY WITH FEW INTERRUPTIONS SINCE HS. WILL CONTINUE TO MONITOR. CALL LIGHT IN REACH AND RAILS UP X 2 FOR SAFETY.
[2023-09-02 04:41] VITALS: BP 147/82
[2023-09-02 05:52] LABS: Hematocrit 25.9 % (33.0-51.0); Hemoglobin 8.1 g/dL (11.5-16.0); Mean Corpuscular HGB 32.1 pg (26.0-34.0); Mean Corpuscular HGB Conc 31.3 g/dL (31.5-36.5); Mean Corpuscular Volume 103 fL (80-100); Mean Platelet Volume 10.3 fL (9.1-12.4); Platelet Count 272 K/mm3 (150-400); RDW Coefficient Variation 15.7 % (11.7-14.2); RDW Standard Deviation 59.1 fL (35.1-46.3); Red Blood Cell Count 2.52 M/mm3 (3.80-5.20); White Blood Cell Count 13.59 K/mm3 (4.00-11.30)
[2023-09-02 06:15] LABS: Bun/Creatinine Ratio 31.8 (12.0-20.0); Calcium, Blood 7.3 mg/dL (8.5-10.1); Creatinine, Blood 0.76 mg/dL (0.40-1.00); Potassium, Blood 3.5 mmol/L (3.5-5.5)
[2023-09-02 06:34] LABS: BAND PERCENT MAN 34 % (0-8); BASOPHILS PERCENT MAN 0 % (0-2); EOSINOPHILS ABSOLUTE MAN 0.13 K/mm3 (0.00-0.68); EOSINOPHILS PERCENT MAN 1 % (0-6); LYMPHOCYTES ABSOLUTE MAN 1.35 K/mm3 (0.84-5.20); LYMPHOCYTES PERCENT MAN 10 % (21-46); METAMYELOCYTE ABSOLUTE MAN 0.13 K/mm3 (0.00-0.00); METAMYELOCYTE PERCENT MAN 1 % (0-0); MONOCYTES PERCENT MAN 3 % (4-13); NEUTROPHILS ABSOLUTE MAN 11.55 K/mm3 (1.96-9.15); SEG NEUTROPHILS PERCENT MAN 51 % (41-73); TOTAL CELLS COUNTED 100
[2023-09-02 07:33] VITALS: BP 153/79
[2023-09-02 16:54] VITALS: BP 155/86
--- NOTE | 2023-09-02 18:15 | NUR ---
SHIFT SUMMARY PT MEDICATED FOR PAIN ONCE TODAY. UP TO CHAIR FOR MEALS AND CONT TO BSC. PT TOLERATING THIS WELL. PLAN TO DC TOMORROW. PT STATES SHE WANTS TO GO BACK TO HER CARE FACILITY AND NOT TO REHAB. DR. URIOSTEGUI NOTIFIED OF CONSTIPATION. BOWEL CARE STARTED TODAY. NO OTHER ACUTE CHANGES IN ASSESSMENT AT THIS TIME. VS REVIEWED. CALL LIGHT IN REACH. DENIES OTHER NEEDS AT THIS TIME.
[2023-09-02 19:30] VITALS: BP 123/71
--- NOTE | 2023-09-03 04:27 | NUR ---
SHIFT SUMMARY PATIENT HAD NO ACUTE CHANGES. AXOX 3 AND SBA TO BSC. PIV REMAINS INTACT. DENIES CHEST PAIN, SOB, AND N/V. REPORTED LEG PAIN X ONE AND TYLENOL 650 MG GIVEN PER EMAR. TELE MONITOR ST 108. VSS/AFEBRILE. CALL LIGHT IN REACH. BED IN LOWEST POSITION. WILL CONTINUE TO MONITOR UNTIL DAY SHIFT NURSE ASSUMES CARE.
[2023-09-03 05:50] LABS: Hematocrit 23.6 % (33.0-51.0); Hemoglobin 7.7 g/dL (11.5-16.0); Mean Corpuscular HGB Conc 32.6 g/dL (31.5-36.5); Mean Corpuscular Volume 101 fL (80-100); Mean Platelet Volume 10.3 fL (9.1-12.4); Platelet Count 260 K/mm3 (150-400); RDW Coefficient Variation 15.9 % (11.7-14.2); RDW Standard Deviation 58.7 fL (35.1-46.3); Red Blood Cell Count 2.33 M/mm3 (3.80-5.20); White Blood Cell Count 15.03 K/mm3 (4.00-11.30)
[2023-09-03 06:12] LABS: Albumin, Blood 1.7 g/dL (3.4-5.0); Albumin/Globulin Ratio 0.5 (0.8-1.8); Bilirubin, Total 0.5 mg/dL (0.1-1.0); Bun/Creatinine Ratio 37.8 (12.0-20.0); Calcium, Blood 8.4 mg/dL (8.5-10.1); Creatinine, Blood 0.77 mg/dL (0.40-1.00); Globulin, Blood 3.4 g/dL (2.2-4.0); Potassium, Blood 3.9 mmol/L (3.5-5.5); Total Protein, Blood 5.1 g/dL (6.4-8.2)
[2023-09-03 07:58] LABS: BAND PERCENT MAN 9 % (0-8); BASOPHILS PERCENT MAN 0 % (0-2); EOSINOPHILS PERCENT MAN 0 % (0-6); LYMPHOCYTES PERCENT MAN 6 % (21-46); MONOCYTES PERCENT MAN 4 % (4-13); NEUTROPHILS ABSOLUTE MAN 13.52 K/mm3 (1.96-9.15); SEG NEUTROPHILS PERCENT MAN 81 % (41-73); TOTAL CELLS COUNTED 100
[2023-09-03 08:13] VITALS: BP 153/93
[2023-09-03 12:29] VITALS: BP 143/93
--- NOTE | 2023-09-03 17:45 | NUR ---
PT IS A/OX4, PLEASANT AND COOPERATIVE. THE PT IS UP WITH MINIMAL ASSIST TO THE BSC AND TO THE CHAIR. PT APPEARS TO BE BREATHING EASILY AT REST. PT WAS MEDICATED FOR PAIN WITH TYLENOL X1 FOR THE LEFT LEG PAIN. PT WORKED WITH THE PHYSIDCAL THERAPIST TODAY. CALL LIGHT IN REACH.
[2023-09-03 20:43] VITALS: BP 158/91
[2023-09-04 02:45] VITALS: BP 158/89
[2023-09-04 05:59] LABS: BASOPHILS ABSOLUTE AUTO 0.06 K/mm3 (0.00-0.23); BASOPHILS PERCENT AUTO 1 % (0-2); EOSINOPHILS ABSOLUTE AUTO 0.14 K/mm3 (0.00-0.68); EOSINOPHILS PERCENT AUTO 1 % (0-6); Hematocrit 26.3 % (33.0-51.0); Hemoglobin 8.5 g/dL (11.5-16.0); IMMATURE GRAN ABSOLUTE AUTO 0.34 K/mm3 (0.00-0.10); IMMATURE GRAN PERCENT AUTO 3 % (0-1); LYMPHOCYTES ABSOLUTE AUTO 1.85 K/mm3 (0.84-5.20); LYMPHOCYTES PERCENT AUTO 14 % (21-46); MONOCYTES ABSOLUTE AUTO 1.28 K/mm3 (0.16-1.47); MONOCYTES PERCENT AUTO 10 % (4-13); Mean Corpuscular HGB 32.3 pg (26.0-34.0); Mean Corpuscular HGB Conc 32.3 g/dL (31.5-36.5); Mean Corpuscular Volume 100 fL (80-100); Mean Platelet Volume 10.7 fL (9.1-12.4); NEUTROPHILS PERCENT AUTO 72 % (41-73); Platelet Count 296 K/mm3 (150-400); RDW Coefficient Variation 15.9 % (11.7-14.2); RDW Standard Deviation 58.2 fL (35.1-46.3); Red Blood Cell Count 2.63 M/mm3 (3.80-5.20); White Blood Cell Count 12.87 K/mm3 (4.00-11.30)
--- NOTE | 2023-09-04 06:19 | NUR ---
SHIFT SUMMARY NOC PT A/O X 4. PLEASANT AND COOPERATIVE WITH CARE. NO ACUTE CHANGES TO REPORT. PT HAD BMM X 1 WHICH WAS DARK AND HARD. ON TELE SINUS TACHYCARDIC IN 100'S-110'S. PT HAS DRESSING IN PLACE ON LLE C/D/I. PT HGB HAS DECREASED FROM 11.3 ON 08/31/23 TO 7.7 09/03/23. PT STOOL APPEARANCE VERY DARK, OCCULT STOOL SAMPLE ORDERED. PT IS CURRENTLY RESTING WITH BED IN LOWEST POSITION, AND CALL LIGHT WITHIN REACH.
[2023-09-04 06:41] LABS: Bun/Creatinine Ratio 38.1 (12.0-20.0); Calcium, Blood 9.3 mg/dL (8.5-10.1); Creatinine, Blood 0.76 mg/dL (0.40-1.00)
[2023-09-04 07:18] VITALS: BP 141/86
[2023-09-04 12:14] LABS: Stool Occult Blood Guaiac 1 Pos (Neg)
[2023-09-04] MEDS ORDERED: LEVOFLOXACIN750 MG PO (15:17)
[2023-09-04] MEDS ORDERED: FAMO20 PO (15:18)
--- NOTE | 2023-09-04 17:00 | NUR ---
PT DISCHARGED THE PT VERBALIZED UNDRESTANDING OF THE DC INSTRUCTIONS. THE PTS PRESCRIPTION WAS FAXED TO [facility]. A FOLLOW UP APPOINTMENT WAS MADE WITH HER PCP PRIOR TO DC. PT WAS TRANSFERED VIA WHEELCHAIR OUT TO MEET HER RIDE ACCOMPANIED BY THE JUNIOR AUTOMATION ENGINEER
== END 2023-09-04 16:56 | disposition home health service (06) | DRG 871 ==
LOC: ER 07:12 → MEDS 14:32 → ICUE 14:32 → MEDS 09-01 15:18
PROVIDERS: Emergency Medicine; Internal Medicine; ADMIT Family Medicine
PROC: 3E033XZ Introduction of Vasopressor into Peripheral Vein, Percutaneous Approach (ICD-10-PCS; principal; 2023-08-31)
PROC: 3E03329 Introduction of Other Anti-infective into Peripheral Vein, Percutaneous Approach (ICD-10-PCS; 2023-08-31)
DX: A41.9 Sepsis, unspecified organism (principal); E43 Unspecified severe protein-calorie malnutrition; J18.9 Pneumonia, unspecified organism; R65.21 Severe sepsis with septic shock; E87.20 Acidosis, unspecified; Z68.1 Body mass index [BMI] 19.9 or less, adult; I10 Essential (primary) hypertension; E03.9 Hypothyroidism, unspecified; G62.9 Polyneuropathy, unspecified; H40.9 Unspecified glaucoma; Z66 Do not resuscitate; D64.9 Anemia, unspecified; Z88.8 Allergy status to other drugs, medicaments and biological substances; Z88.0 Allergy status to penicillin; Z88.1 Allergy status to other antibiotic agents; Z79.82 Long term (current) use of aspirin; Z79.890 Hormone replacement therapy; Z79.899 Other long term (current) drug therapy
CPT/HCPCS: 36415; 71046; 74177; 80048; 80053; 80069; 81003; 82272; 82607; 82746; 83605; 83690; 83735; 84145; 85025; 87040; 92526; 92610; 94762; 96361; 96365; 96367; 96375; 97110; 97110-CQ; 97116; 97116-CQ; 97162; 97165; 97530; 97535; 99285-25; A9270; J1650; J1956; J2405; J7030; J7040; J7060; Q9967

== ENCOUNTER 2023-09-21 21:09 | Inpatient (IN) | payer MEDICARE, OTHER ==
[~2023-09-21] VITALS: Ht 167.6 cm; Wt 46.4 kg
[~2023-09-21 21:09] MED LIST changes: +FAMO20 PO; +LEVOFLOXACIN750 MG PO; +THERA-D2000 UNIT PO
[2023-09-21 21:35] LABS: BASOPHILS ABSOLUTE AUTO 0.03 K/mm3 (0.00-0.23); BASOPHILS PERCENT AUTO 0 % (0-2); EOSINOPHILS ABSOLUTE AUTO 0.07 K/mm3 (0.00-0.68); EOSINOPHILS PERCENT AUTO 1 % (0-6); Hematocrit 31.5 % (33.0-51.0); Hemoglobin 9.9 g/dL (11.5-16.0); IMMATURE GRAN ABSOLUTE AUTO 0.05 K/mm3 (0.00-0.10); IMMATURE GRAN PERCENT AUTO 1 % (0-1); LYMPHOCYTES ABSOLUTE AUTO 0.99 K/mm3 (0.84-5.20); LYMPHOCYTES PERCENT AUTO 11 % (21-46); MONOCYTES ABSOLUTE AUTO 0.93 K/mm3 (0.16-1.47); MONOCYTES PERCENT AUTO 10 % (4-13); Mean Corpuscular HGB 30.9 pg (26.0-34.0); Mean Corpuscular HGB Conc 31.4 g/dL (31.5-36.5); Mean Corpuscular Volume 98 fL (80-100); Mean Platelet Volume 9.6 fL (9.1-12.4); NEUTROPHILS ABSOLUTE AUTO 7.28 K/mm3 (1.96-9.15); NEUTROPHILS PERCENT AUTO 78 % (41-73); Platelet Count 621 K/mm3 (150-400); RDW Coefficient Variation 15.1 % (11.7-14.2); RDW Standard Deviation 54.9 fL (35.1-46.3); White Blood Cell Count 9.35 K/mm3 (4.00-11.30)
[2023-09-21 21:53] LABS: Albumin, Blood 2.5 g/dL (3.4-5.0); Albumin/Globulin Ratio 0.5 (0.8-1.8); Bilirubin, Total 0.4 mg/dL (0.1-1.0); Bun/Creatinine Ratio 29.1 (12.0-20.0); Calcium, Blood 9.2 mg/dL (8.5-10.1); Creatinine, Blood 0.65 mg/dL (0.40-1.00); Globulin, Blood 4.9 g/dL (2.2-4.0); Potassium, Blood 4.6 mmol/L (3.5-5.5); Total Protein, Blood 7.4 g/dL (6.4-8.2)
[2023-09-22] VITALS (18 sets, daily range): BP systolic 95–186; BP diastolic 53–133
--- NOTE | 2023-09-22 00:44 | NUR ---
ARRIVAL TO UNIT AFTER RECEIVING REPORT FROM ED RN, PATIENT ARRIVED TO UNIT VIA ED GURNEY AT APPROX 2350. PATIENT TRANSFERRED TO HOSPITAL BED VIA SLIDER SHEET. PATIENT ABLE TO ANSWER ORIENTATION QUESTIONS APPROPRIATELY. IS FORGETFUL, AND CAN BE A POOR HISTORIAN. TELEMETRY SHOWING SINUS TACH 100's-110's. BP ELEVATED, SBP 150's. DENIES CHEST PAIN, PRESSURE. IS CURRENTLY ON 2L VIA NASAL CANNULA FOR COMFORT, SATS >95%. FREQUENT PRODUCTIVE, WEAK COUGH NOTED. SUCTIONING PRN. GURGLING NOTED WHILE TALKING. PATIENT IS COUGHING UP FOAMY, CLEAR SPUTUM. PATIENT IS A 1 PERSON ASSIST TO BEDSIDE COMMODE WITH FWW. GENERALIZED WEAKNESS NOTED. VOIDED. CALL LIGHT IN REACH. IVF AND ABX INFUSING PER EMAR.
--- NOTE | 2023-09-22 01:58 | NUR ---
PATIENT's BLOOD PRESSURE CONTINUING TO BE ELEVATED SINCE ARRIVAL, SBP 160's-170's. MD DO CONTACTED. RECEIVED ORDER FOR ONE TIME DOSE OF 10MG IV HYDRALAZINE. TO BE ADMINISTERED PER EMAR.
--- NOTE | 2023-09-22 04:03 | NUR ---
THIS RN CALLED TO ROOM BY ELEONORA FROM LAB REGARDING PATIENT STATUS. RT AT BEDSIDE PERFORMING DEEP SUCTION, RECEIVED BREATHING TREATMENT. PATIENT NOTICEABLE SHORT OF BREATH. RR 25-35, RETRACTIONS NOTED. SATS >90% ON ROOM AIR. PATIENT ALERT, ABLE TO COMMUNICATE WITH SHORT SENTENCES. TELEMETRY SHOWING SINUS TACH 110's-120's. BP SOFT, SBP 90's. MAP >65. IVF INFUSING PER EMAR. DENIES CHEST PAIN, PRESSURE. CONTACTED MD DO. RECEIVED ORDER FOR STAT VBG AND TO DISCUSS WITH RT NEED FOR BIPAP THERAPY. THIS RN CONTACTED RT, NOTIFYING OF STAT VBG AND DISCUSSED NEED BIPAP. WILL CONTINUE TO MONITOR.
[2023-09-22 04:09] LABS: Base Excess Venous -0.8 mmol/L; Bicarbonate Venous 23.3 mmol/L (24.0-30.0); PCO2 Venous 33.7 mmHg (38-42); pH Blood Venous 7.45 (7.34-7.37)
[2023-09-22 04:16] LABS: BASOPHILS ABSOLUTE AUTO 0.04 K/mm3 (0.00-0.23); BASOPHILS PERCENT AUTO 0 % (0-2); EOSINOPHILS ABSOLUTE AUTO 0.09 K/mm3 (0.00-0.68); EOSINOPHILS PERCENT AUTO 1 % (0-6); Hematocrit 30.9 % (33.0-51.0); Hemoglobin 9.6 g/dL (11.5-16.0); IMMATURE GRAN ABSOLUTE AUTO 0.06 K/mm3 (0.00-0.10); IMMATURE GRAN PERCENT AUTO 1 % (0-1); LYMPHOCYTES ABSOLUTE AUTO 2.29 K/mm3 (0.84-5.20); LYMPHOCYTES PERCENT AUTO 24 % (21-46); MONOCYTES ABSOLUTE AUTO 0.79 K/mm3 (0.16-1.47); MONOCYTES PERCENT AUTO 8 % (4-13); Mean Corpuscular HGB Conc 31.1 g/dL (31.5-36.5); Mean Corpuscular Volume 100 fL (80-100); Mean Platelet Volume 9.8 fL (9.1-12.4); NEUTROPHILS ABSOLUTE AUTO 6.21 K/mm3 (1.96-9.15); NEUTROPHILS PERCENT AUTO 66 % (41-73); Platelet Count 572 K/mm3 (150-400); RDW Coefficient Variation 15.1 % (11.7-14.2); RDW Standard Deviation 55.5 fL (35.1-46.3); White Blood Cell Count 9.48 K/mm3 (4.00-11.30)
--- NOTE | 2023-09-22 04:17 | NUR ---
RT TO BEDSIDE TO RE-ASSESS PATIENT. PATIENT CONTINUING TO BE TACHYPNEIC, GASPING RESPIRATIONS NOTED. PATIENT REMAINS ALERT, CONTINUING TO BE ABLE TO COMMUNICATE WITH SHORT STATMENTS. RT DISCUSSED USE OF CPAP, PATIENT AGREEING WITH USE. TELEMETRY CONTINUING TO SHOW SINUS TACH 110's-120's. BP REMAINS SOFT, SBP 90's. MAP >65. RT TO SET UP CPAP AT BEDSIDE. WILL CONTINUE TO MONITOR.
[2023-09-22 04:33] LABS: Albumin, Blood 2.3 g/dL (3.4-5.0); Albumin/Globulin Ratio 0.5 (0.8-1.8); Bilirubin, Total 0.3 mg/dL (0.1-1.0); Bun/Creatinine Ratio 26.1 (12.0-20.0); Calcium, Blood 8.6 mg/dL (8.5-10.1); Creatinine, Blood 0.61 mg/dL (0.40-1.00); Globulin, Blood 4.6 g/dL (2.2-4.0); Potassium, Blood 3.9 mmol/L (3.5-5.5); Total Protein, Blood 6.9 g/dL (6.4-8.2)
--- NOTE | 2023-09-22 05:10 | NUR ---
SHIFT SUMMARY SEE PREVIOUS NOTES REGARDING CHANGE IN STATUS. PATIENT IS CURRENTLY RESTING WITH EYES CLOSED, RESPIRATIONS EVEN/UNLABORED. EASILY AROUSABLE TO VERBAL STIMULI, NO SIGNS OF DISTRESS NOTED. CPAP MASK IN PLACE WITH 3L BLEED IN, SATS >95%. WORK OF BREATHING DECREASED FROM EARLIER, RR CURRENTLY 20-24. TELEMETRY SHOWING SINUS TACH 100's-110's. BP SOFT, SBP 90's-110's. MAP >65. MD DO TO BEDSIDE TO ASSESS PATIENT AND DISCUSS PLAN OF CARE. PLAN FOR SPEECH THERAPY EVAL. CALL LIGHT IN REACH. WILL REPORT TO ONCOMING RN.
--- NOTE | 2023-09-22 07:41 | NUR ---
AM NOTE Pt alert, oriented but forgetful at times. Pt resting in bed, encouraged to turn to left side, up with 1 person assist. Pt denies pain, chest pain/pressure, sob, nausea, dizziness and numb/tingling. Spo2 >90% on cpap, placed on 2l o2 via nc, breathing even and unalabored. Tele sinus tach, bp stable systolic 110-130's. Edema noted to ble. Abd soft nontender, +bt t/o. Pt remains NPO for speech therapy consult. Other vss. Will continue to monitor.
--- NOTE | 2023-09-22 18:26 | NUR ---
SHIFT SUMMARY PT BP ELEVATED THIS EVENING, NOTIIED ; NEW ORDERS; MEDICATED. TITRATED DOWN TO RA. OTHER VSS. NO OTHER CAUTE CHANGES NOTED. WILL CONTINUE TO MONITOR.
--- NOTE | 2023-09-22 20:45 | NUR ---
ASSUMPTION OF CARE AFTER RECEIVING REPORT FROM BREN STANTON, THIS RN ASSUMED CARE AT APPROX 1915. PATIENT ALERT, SITTING UP IN BED WATCHING TV. ANSWERS ORIENTATION QUESTIONS APPROPRIATELY, CAN BE FORGETFUL. USES CALL LIGHT APPROPRIATELY NEEDED. ABLE TO PERFORM ORAL CARE INDEPENDENTLY. ASSISTED WITH CHANGING INTO NEW GOWN. [place] A STAND BY ASSIST [place] [facility] [place]LEMETRY SHOWING SINUS 90's. BP STABLE, SBP ELEVATED 150's. DENIES CHEST PAIN, PRESSURE. IS ON ROOM AIR, SATS >90%. DENIES FEELING SHORT OF BREATH AT REST, EXPERIENCES MILD SHORTNESS OF BREATH WITH MOBILITY. OCCASSIONAL WEAK CONGESTED COUGH NOTED. IV ABX INFUSING PER EMAR. CALL LIGHT IN REACH.
[2023-09-23] VITALS (17 sets, daily range): BP systolic 107–189; BP diastolic 65–113
[2023-09-23 04:02] LABS: BASOPHILS ABSOLUTE AUTO 0.03 K/mm3 (0.00-0.23); BASOPHILS PERCENT AUTO 0 % (0-2); EOSINOPHILS ABSOLUTE AUTO 0.19 K/mm3 (0.00-0.68); EOSINOPHILS PERCENT AUTO 3 % (0-6); Hematocrit 24.2 % (33.0-51.0); Hemoglobin 7.5 g/dL (11.5-16.0); IMMATURE GRAN ABSOLUTE AUTO 0.03 K/mm3 (0.00-0.10); IMMATURE GRAN PERCENT AUTO 0 % (0-1); LYMPHOCYTES ABSOLUTE AUTO 0.72 K/mm3 (0.84-5.20); LYMPHOCYTES PERCENT AUTO 11 % (21-46); MONOCYTES ABSOLUTE AUTO 0.67 K/mm3 (0.16-1.47); MONOCYTES PERCENT AUTO 10 % (4-13); Mean Corpuscular HGB 30.7 pg (26.0-34.0); Mean Corpuscular Volume 99 fL (80-100); Mean Platelet Volume 9.5 fL (9.1-12.4); NEUTROPHILS ABSOLUTE AUTO 5.04 K/mm3 (1.96-9.15); NEUTROPHILS PERCENT AUTO 76 % (41-73); Platelet Count 423 K/mm3 (150-400); RDW Coefficient Variation 15.2 % (11.7-14.2); RDW Standard Deviation 55.1 fL (35.1-46.3); Red Blood Cell Count 2.44 M/mm3 (3.80-5.20); White Blood Cell Count 6.68 K/mm3 (4.00-11.30)
[2023-09-23 04:27] LABS: Albumin, Blood 1.9 g/dL (3.4-5.0); Albumin/Globulin Ratio 0.5 (0.8-1.8); Bilirubin, Total 0.3 mg/dL (0.1-1.0); Calcium, Blood 7.5 mg/dL (8.5-10.1); Creatinine, Blood 0.62 mg/dL (0.40-1.00); Globulin, Blood 3.5 g/dL (2.2-4.0); Magnesium, Blood 1.5 mg/dL (1.6-2.4); Phosphorus, Blood 2.3 mg/dL (2.5-4.9); Potassium, Blood 3.6 mmol/L (3.5-5.5); Total Protein, Blood 5.4 g/dL (6.4-8.2)
--- NOTE | 2023-09-23 05:00 | NUR ---
SHIFT SUMMARY NO ACUTE CHANGES SINCE ASSUMPTION OF CARE NOTE. PATIENT SLEPT INTERMITTENTLY THROUGHOUT SHIFT, EASILY AROUSABLE TO VERBAL STIMULI. TELEMETRY SHOWING SINUS 80's WHILE SLEEPING, SINUS TACH 90's-110's WHILE AWAKE. BP LABILE. SBP ELEVATED AT TIMES, 140's-160's. SBP CURRENTLY 100's-110's. MAP >65. REMAINS ON ROOM AIR, SATS >90%. FREQUENT WEAK, CONGESTED COUGH WHILE AWAKE. OCCASSIONALLY PRODUCTIVE, THIN FOAMY WHITE SPUTUM NOTED. SUCTIONING PRN. PATIENT ABLE TO REPOSITION HERSELF SOME IN BED, REQUIRES ASSISTANCE FROM STAFF FOR MAJOR TURNING. UP TO BEDSIDE COMMODE WITH ONE PERSON ASSIST, FWW. VOIDING. NO BM THIS SHIFT. CALL LIGHT IN REACH. WILL REPORT TO ONCOMING RN.
--- NOTE | 2023-09-23 12:15 | NUR ---
I TALKED TO DR. LAU ABOUT THE PT'S HBG DROPPING FROM 9.6 YESTERDAY TO 7.5 TODAY. I HELD THIS MORNINGS DOSE OF LOVENOX DUE TO THE SIGNIFICANT DROP AND ARM BRUISING. SCD'S ORDERED. DR. LAU STATED HE IS GOING TO ORDER MORE LABS TO CHECK THE PT'S BLOOD LEVELS, AND TO HOLD THE LOVENOX FOR NOW. ALSO, THE PT WAS MADE MED W/O TELE AND PT/OT WAS ORDERED. DR. LAU TALKED TO THE PT ABOUT GOING TO A SNF FOR REHABILLITATION FOR HER SWALLOW. THE PT WAS NOT INTRESTED AT THIS TIME. WE WILL WAIT FOR PT AND OT EVALUATIONS AND HAVE PALLIATIVE TALK TO THE PT.
--- NOTE | 2023-09-23 15:01 | NUR ---
DISCUSSED PATIENT WITH BEDSIDE RN. AND CASE WAS DISCUSSED IN MORNING ROUNDS. SHE HAS HAD SEVERAL VISITS TO THE HOSPITAL OVER THE LAST FEW MONTHS. SPEECH THERAPY SAW HER AND RECOMENDED THICKENED LIQUIDS. DISCUSSED THIS WITH VEL. SHE SAID THAT IT WAS NOT GOING TO BE AN EASY ADJUSTMENT, BUT WE DISCUSSED THE RISKS OF ASPARATION IF SHE CONTINUES TO DRINK THE THIN LIQUID AND THE POTENTIAL FOR CONTINUED EPISODES OF PNUMONIA. WE DISCUSSED PT AND OT SEEING HER AND DISCUSSED PROS AND CONS OF GOING TO A NURSING HOME FACILITY IF THAT IS WHAT IS RECOMENDED. ENDED VISIT TO ALLOW PATIENT TO EAT LUNCH.
--- NOTE | 2023-09-23 16:34 | NUR ---
SHIFT SUMMARY THE PT HAS BEEN A&OX4 TODAY AND HAS BEEN CALLING APPROPRAITELY. SHE IS A 1P SBA W/ FWW AND GB. SHE WORKED W/ ST AND PT TODAY. SHE IS ON A MINCED AND MOIST DIET, AND A MILDLY THICKENED (NECTAR THICK) DIET. THE PT HAS BEEN UPRIGHT IN THE CHAIR FOR MEALS AND HAS BEEN ABLE TO TOLERATE PO. DR. LAU IS RECCOMENDING THAT THE PT GOES TO SNF SO SHE CAN CONTINUE TO RECIEVE IV ANTIBIOTICS AND RECIEVE ST/PT/OT WHILE ON THE ANTIBIOTICS. CHARGE NURSE NOTIFED OF 'S REQUEST FOR A POWERGLIDE BEFORE DISCHARGE. THE PT IS NOW MEDICAL W/O TELE. SP02 HAS REAMINED >93% ON RA W/ NO C/O SOB. WE HAVE HAD NO ACUTE EVENTS TODAY. FIRE IGNITION RISK HAS BEEN ASSESSED SEE NOTES FOR ANY UPDATES.
--- NOTE | 2023-09-23 21:17 | NUR ---
ASSUMPTION OF CARE AFTER RECEIVING REPORT FROM HUMAIRA RN, THIS RN ASSUMED CARE AT APPROX 1915. PATIENT ALERT, SITTING UP IN BED TALKING TO HER FRIEND ON HOSPITAL PHONE. IS ALERT AND ORIENTED X4. VITAL SIGNS OBTAINED. BLOOD PRESSURE ELEVATED, SBP 170's-180's. RATE 100's-110's. DENIES CHEST PAIN, PRESSURE. MD CONTACTED. RECEIVED ORDER FOR IV LABETALOL. WAS MEDICAL STATUS WITHOUT TELEMETRY, TELEMETRY PLACED FOR CARDIAC MONITORING. SHOWING SINUS TACH 110's. MEDICATION ADMINISTERED PER EMAR. BP IMPROVED, SBP 140's. RATE 90's. IS ON ROOM AIR, SATS >90%. DENIES SHORTNESS OF BREATH AT REST, DOES EXPERIENCE MILD DYSPNEA WITH MOBILITY. OCCASSIONAL PRODUCTIVE COUGH NOTED. NOTED TO BE IMPROVED FROM PREVIOUS SHIFTS. IS A ONE PERSON ASSIST WITH FWW TO BEDSIDE COMMODE, CHAIR. CALL LIGHT IN REACH.
--- NOTE | 2023-09-23 22:18 | NUR ---
UPDATE PATIENT UP TO USE BEDSIDE COMMODE TO VOID AND HAVE A BOWEL MOVEMENT. THIS RN NOTED STOOL TO BE DARK SHETH, TARRY. AFTER ASSISTING PATIENT BACK TO BED, THIS RN NOTIFIED MD OF STOOL AND MORNING HEMOGLOBIN LAB OF 7.5. RECEIVED ORDER TO COLLECT OCCULT GUAIAC STOOL SAMPLE AND H+H LAB TO BE COLLECTED NOW AND IN THE MORNING. ORDERS IN PLACE. STOOL SAMPLE SENT TO LAB FOR ANALYSIS. MD TO BE NOTIFIED IF PATIENT IS CONTINUING TO PASS DARK, TARRY STOOLS AND IF SAMPLE COMES BACK POSITIVE.
[2023-09-23 22:48] LABS: Hematocrit 24.6 % (33.0-51.0); Hemoglobin 7.8 g/dL (11.5-16.0)
[2023-09-24 02:25] VITALS: BP 104/71
[2023-09-24 03:46] VITALS: BP 147/92
[2023-09-24 03:59] LABS: Hemoglobin 8.7 g/dL (11.5-16.0)
--- NOTE | 2023-09-24 04:18 | NUR ---
SHIFT SUMMARY NO ACUTE CHANGES SINCE PREVIOUS NOTES. PATIENT SLEPT PERIODICALLY THROUGHOUT SHIFT, REMAINS EASILY AROUSABLE TO VERBAL STIMULI. USES CALL LIGHT APPROPRIATELY TO COMMUNICATE NEEDS. TELEMETRY SHOWING SINUS 80's. BP REMAINS STABLE SINCE ADMINISTRATION OF X1 DOSE OF LABETALOL PER EMAR. SBP <170. REMAINS ON ROOM AIR, SATS >90%. OCCASSIONAL WEAK, PRODUCTIVE COUGH, THIN FOAMY SPUTUM NOTED. X2 EPISODES OF GREEN/BLACK TARRY STOOLS, PENDING OCCULT STOOL LAB RESULT. HEMOGLOBIN INCREASED FROM 7.5 TO 8.7. PATIENT IS A ONE TO TWO PERSON ASSIST TO BEDSIDE COMMODE WITH FWW, GAIT BELT. GENERALIZED WEAKNESS, DECONDITIONING NOTED THROUGHOUT. VOIDING. PATIENT IS ABLE TO REPOSITION HERSELF IN BED. CALL LIGHT IN REACH. WILL REPORT TO ONCOMING RN.
[2023-09-24 07:19] VITALS: BP 154/91
[2023-09-24 12:00] LABS: Stool Occult Blood Guaiac 1 Neg (Neg)
[2023-09-24] MEDS ORDERED: IPRAT-ALBUT 0.5-3 ML INH (12:37)
[2023-09-24] MEDS ORDERED: CEFTRIAXON1 GM/50 M1 IV (12:37)
[2023-09-24] MEDS ORDERED: PROBIOTIC1 EA13 PO (12:38)
[2023-09-24] MEDS ORDERED: Metronidaz500 MG/100 IV (12:38)
[2023-09-24 15:54] VITALS: BP 125/75
--- NOTE | 2023-09-24 17:53 | NUR ---
discharge summary Pt alert, able to make needs known. sp02>90% on ra. Pt has productive occasional cough, white sputum. Self suctioning. Telemetry shows nsr/sinus tach, hr 90's-100's. vss. Pt up to bsc 1 person assist w/ fww to void/have bm. pt able to work with PT and OT. abx infused per emar. Powerglide placed for SNF to infuse abx. Pt's son, Warren, updated multiple times this shift. [facility] update. Awaiting transport to SNF at approx 1815 this evening.
--- NOTE | 2023-09-24 18:27 | NUR ---
discharge update PERIPHERAL IVS REMOVED. POWERGLIDE REMAINS. THIS RN HELPED PT DRESS. PT ABLE TO STAND W/ FWW AND TRANSITION TO WHEELCHAIR WITH TRANSPORT. PACKET GIVEN TO TRANSPORT PERSON. PT BELONGINGS WITH PATIENT. TRANSPORT WHEELED PT OUT APPROX 1819.
== END 2023-09-24 18:28 | DRG 177 ==
LOC: ER 21:09 → PCU 09-22 00:05
PROVIDERS: Emergency Medicine; Hospitalist; Nurse Practitioner Acute Care; ADMIT Internal Medicine
DX: J69.0 Pneumonitis due to inhalation of food and vomit (principal); J96.01 Acute respiratory failure with hypoxia; Z66 Do not resuscitate; R13.12 Dysphagia, oropharyngeal phase; I25.10 Atherosclerotic heart disease of native coronary artery without angina pectoris; I10 Essential (primary) hypertension; E03.9 Hypothyroidism, unspecified; M19.90 Unspecified osteoarthritis, unspecified site; F03.90 Unspecified dementia, unspecified severity, without behavioral disturbance, psychotic disturbance, mood disturbance, and anxiety; M81.0 Age-related osteoporosis without current pathological fracture; H40.9 Unspecified glaucoma; J45.909 Unspecified asthma, uncomplicated; S22.079D Unspecified fracture of T9-T10 vertebra, subsequent encounter for fracture with routine healing; S22.20XD Unspecified fracture of sternum, subsequent encounter for fracture with routine healing; Z79.82 Long term (current) use of aspirin; Z79.890 Hormone replacement therapy; Z98.82 Breast implant status
CPT/HCPCS: 31720; 36415; 71045; 71046; 80053; 82272; 82803; 83735; 83880; 84100; 85014; 85018; 85025; 92526; 92610; 93005; 93010; 94640; 94660; 94664; 94760; 94762; 97110; 97116; 97162; 97165; 97530; 99285-25; A9270; C1751; J0360; J0696; J1650; J7030

== ENCOUNTER 2024-02-08 12:40 | Emergency (ER) | payer OTHER, MEDICARE ==
[~2024-02-08] VITALS: Ht 160 cm; Wt 39.5 kg
[~2024-02-08 12:40] MED LIST changes: +CEFTRIAXON1 GM/50 M1 IV; +IPRAT-ALBUT 0.5-3 ML INH; +Metronidaz500 MG/100 IV; +PROBIOTIC1 EA13 PO
[2024-02-08 12:44] VITALS: BP 186/106
[2024-02-08] MEDS ORDERED: Diphth,Pertuss(Acell),Tet Vac 0.5 ML VIAL IM ONE (14:55)
== END 2024-02-08 16:15 | disposition home or self-care (01) ==
LOC: ER 12:40
DX: S42.031A Displaced fracture of lateral end of right clavicle, initial encounter for closed fracture (principal); S81.812A Laceration without foreign body, left lower leg, initial encounter; S00.83XA Contusion of other part of head, initial encounter; M75.31 Calcific tendinitis of right shoulder; W01.10XA Fall on same level from slipping, tripping and stumbling with subsequent striking against unspecified object, initial encounter; Z88.0 Allergy status to penicillin; Z88.8 Allergy status to other drugs, medicaments and biological substances; Z88.1 Allergy status to other antibiotic agents; Z79.899 Other long term (current) drug therapy; Z79.82 Long term (current) use of aspirin; I25.10 Atherosclerotic heart disease of native coronary artery without angina pectoris; I10 Essential (primary) hypertension; E03.9 Hypothyroidism, unspecified
CPT/HCPCS: 12002; 70450; 73000; 90471; 90715; 99284-25

== ENCOUNTER → 2024-04-20 | Outpatient (CLI) | payer MEDICARE ==
[~2024-04-20] MED LIST changes: +ACET500 PO; +ALEN70 PO; +ALUM-MAG HYDROX30 M1 PO; +ANTIBIOTIC OINT28 GM TOP; +ARTIFICIAL TEAR15 M6 BOTHEYES; +Clobetasol Prop50 ML TOP; +ESTRADIOL42.5 GM VAG; +Fleet Enema132 ML PR; +IBUP400 PO; +METO25ER PO; +MUPIROCIN1 G1 TOP; +Morphine Sulfat15 MG PO; +PEPTO-BISMOL T262 M2 PO
[2024-04-20 12:26] LABS: Source, Urine Clean Catch
[2024-04-20 13:28] LABS: Appearance, Urine Clear (Clear); Bilirubin, Urine Neg (Neg); Blood, Urine Neg (Neg); Color, Urine Yellow (P-Yellow); Glucose Qualitative, Urine Neg (Neg); Ketones, Urine Neg (Neg); Leukocyte Esterase, Urine Neg (Neg); Nitrite, Urine Neg (Neg); Protein, Urine Neg (Neg); Specific Gravity, Urine 1.015 (1.003-1.022); Urobilinogen, Urine NORM (Normal)
== END ==
LOC: LAB SHORT 05:30 → LAB 05:30
PROVIDERS: Family Medicine
DX: N39.0 Urinary tract infection, site not specified (principal)
CPT/HCPCS: 81003

== ENCOUNTER 2024-04-27 07:19 | Emergency (ER) | payer OTHER, MEDICARE ==
[~2024-04-27] VITALS: Ht 160 cm; Wt 40.8 kg
[~2024-04-27 07:19] MED LIST changes: -ACET500 PO; -ALEN70 PO; -ALUM-MAG HYDROX30 M1 PO; -ANTIBIOTIC OINT28 GM TOP; -ARTIFICIAL TEAR15 M6 BOTHEYES; -Clobetasol Prop50 ML TOP; -ESTRADIOL42.5 GM VAG; -Fleet Enema132 ML PR; -IBUP400 PO; -METO25ER PO; -MUPIROCIN1 G1 TOP; -Morphine Sulfat15 MG PO; -PEPTO-BISMOL T262 M2 PO
[2024-04-27] MEDS ORDERED: Ketorolac Tromethamine 30mg Vial IM ONE (07:35)
[2024-04-27] MEDS ORDERED: ALEN70 PO (07:53)
[2024-04-27] MEDS ORDERED: METO25ER PO (07:53)
[2024-04-27] MEDS ORDERED: Morphine Sulfate 20 MG/1ML 1 ML Oral Syringe PO ONE (09:45)
[2024-04-27] MEDS ORDERED: ACET500 PO (09:57)
[2024-04-27] MEDS ORDERED: IBUP400 PO (09:57)
[2024-04-27] MEDS ORDERED: Morphine Sulfat15 MG PO (09:57)
[2024-04-27 10:25] VITALS: BP 119/77
[2024-04-28] MEDS ORDERED: ALUM-MAG HYDROX30 M1 PO (10:50)
[2024-04-28] MEDS ORDERED: PEPTO-BISMOL T262 M2 PO (10:52)
[2024-04-28] MEDS ORDERED: Clobetasol Prop50 ML TOP (10:55)
[2024-04-28] MEDS ORDERED: ARTIFICIAL TEAR15 M6 BOTHEYES (10:56)
[2024-04-28] MEDS ORDERED: MUPIROCIN1 G1 TOP (10:58)
[2024-04-28] MEDS ORDERED: ESTRADIOL42.5 GM VAG (11:20)
[2024-04-28] MEDS ORDERED: BISA10S PR (11:21)
[2024-04-28] MEDS ORDERED: Fleet Enema132 ML PR (11:24)
[2024-04-28] MEDS ORDERED: ANTIBIOTIC OINT28 GM TOP (11:25)
== END 2024-04-27 10:29 | disposition home or self-care (01) ==
LOC: ER 07:19
DX: S32.591A Other specified fracture of right pubis, initial encounter for closed fracture (principal); R55 Syncope and collapse; I10 Essential (primary) hypertension; E03.9 Hypothyroidism, unspecified; W01.0XXA Fall on same level from slipping, tripping and stumbling without subsequent striking against object, initial encounter; Z79.899 Other long term (current) drug therapy; Z79.82 Long term (current) use of aspirin; Z88.0 Allergy status to penicillin; Z88.8 Allergy status to other drugs, medicaments and biological substances
CPT/HCPCS: 73502; 96372; 99283-25; A9270; J1885

== ENCOUNTER 2024-04-27 21:24 | Inpatient (IN) | payer MEDICARE ==
[~2024-04-27] VITALS: Ht 160 cm; Wt 43.8 kg
[~2024-04-27 21:24] MED LIST changes: +ACET500 PO; +ALEN70 PO; +IBUP400 PO; +METO25ER PO; +Morphine Sulfat15 MG PO
[2024-04-27] MEDS ORDERED: Ipratropium/Albuterol SulF 2.5-0.5MG/3 ML Amp INH ONE (22:05)
[2024-04-27 22:14] LABS: Hematocrit 26.7 % (33.0-51.0); Mean Corpuscular HGB 31.1 pg (26.0-34.0); Mean Corpuscular Volume 104 fL (80-100); Platelet Count 199 K/mm3 (150-400); RDW Coefficient Variation 15.9 % (11.7-14.2); RDW Standard Deviation 59.8 fL (35.1-46.3); Red Blood Cell Count 2.57 M/mm3 (3.80-5.20); White Blood Cell Count 9.03 K/mm3 (4.00-11.30)
[2024-04-27 22:33] LABS: Albumin, Blood 2.3 g/dL (3.4-5.0); Albumin/Globulin Ratio 0.6 (0.8-1.8); Bilirubin, Total 0.6 mg/dL (0.1-1.0); Bun/Creatinine Ratio 43.2 (12.0-20.0); Calcium, Blood 8.6 mg/dL (8.5-10.1); Creatinine, Blood 1.11 mg/dL (0.40-1.00); Globulin, Blood 3.7 g/dL (2.2-4.0); Potassium, Blood 4.9 mmol/L (3.5-5.5)
[2024-04-27 22:57] LABS: BAND PERCENT MAN 10 % (0-8); BASOPHILS PERCENT MAN 0 % (0-2); EOSINOPHILS ABSOLUTE MAN 0.09 K/mm3 (0.00-0.68); EOSINOPHILS PERCENT MAN 1 % (0-6); LYMPHOCYTES ABSOLUTE MAN 0.54 K/mm3 (0.84-5.20); LYMPHOCYTES PERCENT MAN 6 % (21-46); MONOCYTES ABSOLUTE MAN 0.27 K/mm3 (0.16-1.47); MONOCYTES PERCENT MAN 3 % (4-13); NEUTROPHILS ABSOLUTE MAN 8.12 K/mm3 (1.96-9.15); SEG NEUTROPHILS PERCENT MAN 80 % (41-73); TOTAL CELLS COUNTED 100
[2024-04-27 23:29] LABS: Influenza A, PCR NEGATIVE (NEGATIVE); Influenza B, PCR NEGATIVE (NEGATIVE); Resp Syncytial Virus, PCR NEGATIVE (NEGATIVE); SARS-Cov-2 (COVID-19) PCR, MMC NEGATIVE (NEGATIVE)
[2024-04-27] MEDS ORDERED: Ondansetron HCl 2 MG / ML 2ML Vial IV ONE (23:30)
[2024-04-28] MEDS ORDERED: Acetaminophen 500 MG Tab PO PRN (01:35)
[2024-04-28] MEDS ORDERED: Morphine Sulfate IR 15 MG Tab PO PRN (01:35)
[2024-04-28] MEDS ORDERED: Albuterol 2.5 MG/3 ML VIAL INH PRN (01:45)
[2024-04-28] MEDS ORDERED: Ipratropium/Albuterol SulF 2.5-0.5MG/3 ML Amp INH SCH (01:45)
[2024-04-28] MEDS ORDERED: Azithromycin 500 MG in NS 250 ML IV SCH (03:00)
[2024-04-28 04:17] VITALS: BP 74/49
[2024-04-28 04:54] LABS: Hematocrit 24.7 % (33.0-51.0); Hemoglobin 7.6 g/dL (11.5-16.0); Mean Corpuscular HGB 31.1 pg (26.0-34.0); Mean Corpuscular HGB Conc 30.8 g/dL (31.5-36.5); Mean Corpuscular Volume 101 fL (80-100); Platelet Count 196 K/mm3 (150-400); RDW Coefficient Variation 15.9 % (11.7-14.2); RDW Standard Deviation 59.6 fL (35.1-46.3); Red Blood Cell Count 2.44 M/mm3 (3.80-5.20); White Blood Cell Count 8.76 K/mm3 (4.00-11.30)
[2024-04-28 05:07] VITALS: BP 85/61
[2024-04-28] MEDS ORDERED: Lactated Ringer's 1,000 ML IV ONE ×2 (05:13→05:15)
[2024-04-28 05:14] LABS: Albumin, Blood 2.3 g/dL (3.4-5.0); Albumin/Globulin Ratio 0.6 (0.8-1.8); Bilirubin, Total 0.7 mg/dL (0.1-1.0); Bun/Creatinine Ratio 42.9 (12.0-20.0); Calcium, Blood 8.2 mg/dL (8.5-10.1); Creatinine, Blood 1.26 mg/dL (0.40-1.00); Globulin, Blood 3.6 g/dL (2.2-4.0); Potassium, Blood 5.6 mmol/L (3.5-5.5); Total Protein, Blood 5.9 g/dL (6.4-8.2)
[2024-04-28] MEDS ORDERED: NS 1,000 ML IV SCH ×2 (05:15→05:20)
[2024-04-28 05:16] LABS: BAND PERCENT MAN 13 % (0-8); BASOPHILS PERCENT MAN 0 % (0-2); EOSINOPHILS ABSOLUTE MAN 0.08 K/mm3 (0.00-0.68); EOSINOPHILS PERCENT MAN 1 % (0-6); LYMPHOCYTES % ATYPICAL MANUAL 1 % (0-0); LYMPHOCYTES ABSOLUTE MAN 0.35 K/mm3 (0.84-5.20); LYMPHOCYTES PERCENT MAN 3 % (21-46); MONOCYTES ABSOLUTE MAN 0.43 K/mm3 (0.16-1.47); MONOCYTES PERCENT MAN 5 % (4-13); NEUTROPHILS ABSOLUTE MAN 7.88 K/mm3 (1.96-9.15); SEG NEUTROPHILS PERCENT MAN 77 % (41-73); TOTAL CELLS COUNTED 100
[2024-04-28] MEDS ORDERED: NS 500 ML IV SCH (05:20)
--- NOTE | 2024-04-28 05:34 | NUR ---
APPROX. 0417, VITALS TAKEN FOR PT ADMIT TO ROOM 309. BP 74/49 map(58), RESP 8, 02 80% ON ROOM AIR, 100% ON 2L OXYGEN. (M). LUNG SOUNDS WITH A DEEP BREATH SOULD CRACKLE/POP AND WET. RN IMMEDIATELY NOTIFIED. APPROX. 0507, 2ND VITAL CHECK. BP 85/61(70), RESP 7 (M), 02 100% ON OXYGEN. RN NOTIFIED
[2024-04-28 07:20] VITALS: BP 101/53
[2024-04-28] MEDS ORDERED: Lisinopril 20 MG Tab PO SCH (09:00)
[2024-04-28] MEDS ORDERED: Lactobacil 2-S.Thermo-Bifido 1 1 Cap PO SCH (09:00)
[2024-04-28] MEDS ORDERED: Pravastatin Sodium 20 MG Tab PO SCH (09:00)
[2024-04-28] MEDS ORDERED: Aspirin 81 MG Chew PO SCH (09:00)
[2024-04-28] MEDS ORDERED: Cholecalciferol 1000 Unit Tablet (=25MCG) PO SCH (09:00)
[2024-04-28] MEDS ORDERED: Metoprolol Succinate 25 MG TABCR PO SCH (09:00)
[2024-04-28] MEDS ORDERED: Levothyroxine Sodium 0.088 MG Tab PO SCH (09:00)
[2024-04-28] MEDS ORDERED: PredniSONE 20 MG Tab PO SCH (09:00)
[2024-04-28] MEDS ORDERED: Famotidine 20 MG Tab PO SCH (09:00)
[2024-04-28] MEDS ORDERED: Enoxaparin 30 MG/0.3 ML SYR SC SCH (09:00)
[2024-04-28] MEDS ORDERED: ALUM-MAG HYDROX30 M1 PO (10:50)
[2024-04-28] MEDS ORDERED: PEPTO-BISMOL T262 M2 PO (10:52)
[2024-04-28] MEDS ORDERED: Clobetasol Prop50 ML TOP (10:55)
[2024-04-28] MEDS ORDERED: ARTIFICIAL TEAR15 M6 BOTHEYES (10:56)
[2024-04-28] MEDS ORDERED: MUPIROCIN1 G1 TOP (10:58)
[2024-04-28] MEDS ORDERED: MethylPREDNISolone Sod Succ 40 MG VIAL IV SCH (11:00)
[2024-04-28] MEDS ORDERED: ESTRADIOL42.5 GM VAG (11:20)
[2024-04-28] MEDS ORDERED: BISA10S PR (11:21)
[2024-04-28] MEDS ORDERED: Fleet Enema132 ML PR (11:24)
[2024-04-28] MEDS ORDERED: ANTIBIOTIC OINT28 GM TOP (11:25)
[2024-04-28] MEDS ORDERED: FentaNYL Citrate 50 MCG/ML 2 ML Injection IV PRN (11:40)
[2024-04-28] MEDS ORDERED: CefTRIAXone Sodium 1,000 MG in NS 100 ML IV SCH (13:34)
--- NOTE | 2024-04-28 15:08 | NUR ---
SHIFT SUMMARY MS SANTIAGO IS SLEEPY TODAY, EASILY AROUSABLE. ORIENTATED TO SELF, DATE AND PLACE. COARSE LUNG SOUNDS, MOIST COUGH. ON CONTINUOUS PULSE OXIMETER IN THE 90S ON 2L NC OXYGEN. SHE COUGHED AFTER THIN LIQUIDS THIS AM - SWALLOW EVAL DONE, NOW ON NECTAR THICK LIQUIDS. CALL TO PALLIATIVE CARE THIS AM, AWAITING CONSULT. SHE HAS 10/10 PAIN FROM FX WHICH WAS HELPED AFTER SECOND FENTANYL DOSE. STARTED LOW AT 12.5MG IV. PLACED ON TELEMETRY IN SINUS TACH 123HR. ON BEDREST AWAITING PHYSICAL THERAPY ASSESSMENT. TURNED AND REPOSITIOINED Q2HRS AND PRN. BED LOW, CALL LIGHT IN REACH, BED ALARM ON.
[2024-04-28 15:49] VITALS: BP 129/72
--- NOTE | 2024-04-28 16:38 | NUR ---
Pt is 89 years old, with COPD, HTN, HLD. She was admitted to the hospital for SOB, and a pelvic fx. ED noted the patient had tachycardia and hypotension. She was also noted to require 02. CXR showed "pulmonary vascular markings." She had a barium swallow study and is currently on a modified texture due to difficulty swallowing. Her healthcare proxy is Warren Funez, her son. She has Full Code status. Plan to discuss this with pt's son in the am via phone.
[2024-04-28 19:56] VITALS: BP 138/69
[2024-04-28] MEDS ORDERED: Latanoprost 0.005% Opth Soln 2.5 ML BOTHEYES SCH (21:00)
[2024-04-29] MEDS ORDERED: NS 250 ML IV PRN (03:45)
[2024-04-29 04:25] VITALS: BP 149/78
--- NOTE | 2024-04-29 05:18 | NUR ---
SHIFT SUMMARY PT A/O3, FORGETFUL. PURWICK IN PLACE. HOB ELEVATED. DYSPHAGIA PRECAUTIONS. PT NEEDS SUPERVISION OR TO BE SPOON FULS WITH NECTAR THICK LIQUIDS SHE DRANK TOO MUCH AT ONE TIME THIS MORNING AND DID NOT COUGH BUT SOUNDS VERY MOIST, CRACKLY. ST EVAL'S YESTERDAY AND BARRRIUM SWALLOW PENDING TODAY. PILL CRUSHED IN APPLESAUCE. BED ALARM ON. CALL LIGHT IN REACH, OCCASIONALLY IMPULSIVE. 2L NC MAINTAINING ABOVE 95% WHILE ASLEEP.
[2024-04-29 05:24] LABS: Hematocrit 22.5 % (33.0-51.0); Hemoglobin 6.7 g/dL (11.5-16.0); Mean Corpuscular HGB 30.9 pg (26.0-34.0); Mean Corpuscular HGB Conc 29.8 g/dL (31.5-36.5); Mean Corpuscular Volume 104 fL (80-100); Platelet Count 188 K/mm3 (150-400); RDW Coefficient Variation 16.4 % (11.7-14.2); RDW Standard Deviation 62.4 fL (35.1-46.3); Red Blood Cell Count 2.17 M/mm3 (3.80-5.20); White Blood Cell Count 8.97 K/mm3 (4.00-11.30)
[2024-04-29 05:45] LABS: Albumin/Globulin Ratio 0.6 (0.8-1.8); Bilirubin, Total 0.4 mg/dL (0.1-1.0); Bun/Creatinine Ratio 46.8 (12.0-20.0); Calcium, Blood 7.3 mg/dL (8.5-10.1); Creatinine, Blood 0.68 mg/dL (0.40-1.00); Globulin, Blood 3.6 g/dL (2.2-4.0); Potassium, Blood 4.4 mmol/L (3.5-5.5); Total Protein, Blood 5.6 g/dL (6.4-8.2)
[2024-04-29 05:59] LABS: BAND PERCENT MAN 18 % (0-8); BASOPHILS PERCENT MAN 0 % (0-2); EOSINOPHILS ABSOLUTE MAN 0.08 K/mm3 (0.00-0.68); EOSINOPHILS PERCENT MAN 1 % (0-6); LYMPHOCYTES ABSOLUTE MAN 0.17 K/mm3 (0.84-5.20); LYMPHOCYTES PERCENT MAN 2 % (21-46); METAMYELOCYTE ABSOLUTE MAN 0.08 K/mm3 (0.00-0.00); METAMYELOCYTE PERCENT MAN 1 % (0-0); MONOCYTES PERCENT MAN 9 % (4-13); SEG NEUTROPHILS PERCENT MAN 69 % (41-73); TOTAL CELLS COUNTED 100
[2024-04-29 07:19] VITALS: BP 145/85
--- NOTE | 2024-04-29 07:38 | NUR ---
DR URIOSTEGUI NOTIFIED OF MORNING BLOOD DRAW WITH HGB OF 6.7
[2024-04-29 08:21] LABS: RETIC HGB EQUIVALENT 31.7 pg (28.20-36.60); RETICULOCYTE ABSOLUTE 0.0614 M/mm3 (0.0200-0.1100); RETICULOCYTE COUNT PERCENT 2.78 % (0.50-2.50)
[2024-04-29 08:38] LABS: Hemoglobin 7.4 g/dL (11.5-16.0)
[2024-04-29 09:24] LABS: Percent Saturation 5.4 % (15.0-50.0)
[2024-04-29] MEDS ORDERED: Ferrous Sulfate 325 MG Tab PO SCH (12:00)
--- NOTE | 2024-04-29 15:35 | NUR ---
Met with the patient at bedside to discuss her dysphagia. She stated she is not suprised, as food feels like it's been sticking in her throat when eating or drinking, and has been happening for a while now. She also states she would not want a feeding tube. She states she would prefer to just live out her life, eating and drinking what she wants. She states she is comfortable with going home with hospice. Spoke with pt's son and DIL as well, and they are also on board with home with hospice. CM spoke to Jerilyn, database security administrator of [facility], who will be working with CM to return pt home.
[2024-04-29 15:37] VITALS: BP 139/68
--- NOTE | 2024-04-29 18:05 | NUR ---
PT'S CODE STATUS HAS CHANGED TO DNR DURING THIS SHIFT. THE PLAN IS TO RETURN TO FACILITY AND TRANSITION TO HOSPICE, STAFF FROM FACILITY WILL BE HERE ON FRIDAY FOR ASSESSMENT TO RETURN TO FACILITY. SHE HAS DENIED CHEST PAIN AND SOB FOR THE SHIFT, SHE DID REPORT SOME MILD SOB AT THE END OF THE SHIFT WHICH RESOLVED WITH REASSURANCE. SHE REMAINS ON TELE, SR<->ST THAT RANGES FROM 80-120s ON MONITOR. SHE IS A ONE PERSON PIVOT TO CHAIR AND BED, PUREWICK REMAINS IN PLACE. CALL LIGHT WITHIN REACH. SHE HAS TOLERATED MEDS WELL DURING THIS SHIFT.
[2024-04-29 19:36] VITALS: BP 155/96
[2024-04-29 20:13] VITALS: BP 142/76
[2024-04-29] MEDS ORDERED: NS 500 ML IV ONE (20:40)
[2024-04-29] MEDS ORDERED: NS 1,000 ML IV SCH (20:40)
[2024-04-30 02:18] VITALS: BP 156/84
--- NOTE | 2024-04-30 03:56 | NUR ---
SHIFT ARNULFO PT WAS MAINTAINING A HR IN THE 140'S AT BEGINNING OF SHIFT, CALLED WATER SYSTEMS ENGINEER TO CONFIRM AID AND I NOTICED THSI ON CONTINUOUS PULSE OX. PT IS SOB, LUNGS ARE COARSE T/O. ASPIRATION/DYSPHAGIA PRECAUTIONS. NPO APART FROM MEDS CRUSHED IN APPLESAUCE HOWEVER HELD PROBIOTIC DUE TO DROWSINESS. HOB ELEVATED. OCCASIONAL PRODUCTIVE COUGH. DENEIS PAIN. DR NOTIFIED OF HR THAT WAS SUSTAINING IN 140'S ORDERED 1 BOLUS OF 500 BOLUS AND MAINTENENCE FLUIDS TO FOLLOW AT 75 ML/HR. HR WHILE AT REST IS NOW MAINTAING 115-125. PLAN OF TO RETURN TO [place] AND TRANSITION TO HOSPICE. CALL LIGHT IN REACH. PUREWICK IN PLACE.
[2024-04-30 07:13] VITALS: BP 174/99
--- NOTE | 2024-04-30 11:30 | NUR ---
Pt placed on comfort care today. She is returning to [facility] with hospice. Diet order placed for Soft & bite sized, with mildly thick liquids.
--- NOTE | 2024-04-30 14:22 | NUR ---
Pt. is awake in bed and she welcomes my visit. Pt. is pleasant, but displays evidence of being MATCH-E-BE-NASH-SHE-WISH BAND. Pt. verbalizes that her son lives in [place], and that she is "getting ready to go to [facility]." Facilitate a short life review in which the Pt. 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 Pt. displays evidence of increased trust. Prayer for the pt. is made, and the Pt. verbalized gratitude for the spiritual care visit.
[2024-04-30 14:27] VITALS: BP 129/93
--- NOTE | 2024-04-30 17:19 | NUR ---
PATIENT A&OX4. DURING LUNCH, O2 SAT DROPPED TO 83% DURING EATING, WOULD INCREASE TO 93% AFTER SWALLOWING. INCREASED OXYGEN FROM 1L TO 3L. PUREWICK ASSESSED, CHANGED, AND IN PLACE. WORKED WITH RESPIRATORY TODAY. DID NOT AMBULATE TODAY. DIET IMPROVED FROM NPO TO SMALL AND BITE SIZE WITH MILD THINK FLUIDS. URINE OUTPUT 250 ML WITH NS RUNNING AT 75/HR ALL DAY. CALL LIGHT WITHIN REACH.
[2024-04-30 19:09] VITALS: BP 153/90
[2024-05-01 02:29] VITALS: BP 151/92
[2024-05-01 06:57] VITALS: BP 139/74
[2024-05-01] MEDS ORDERED: Scopolamine Hydrobromide Patch TOP SCH (08:55)
[2024-05-01] MEDS ORDERED: Morphine Sulfat15 MG PO (09:31)
[2024-05-01] MEDS ORDERED: Morphine Sulfate 20 MG/1ML 1 ML Oral Syringe SL PRN (11:30)
[2024-05-01] MEDS ORDERED: Acetaminophen 650 MG Supp PR PRN (11:30)
--- NOTE | 2024-05-01 11:31 | NUR ---
Pt resting some minimal grimace and slightly labored. Review of medication and symtoms with nursing. Updated phsysician added bautista lower dose medications due to age and weight for comfort. Will continue to monitor air hunger closely.
--- NOTE | 2024-05-01 14:20 | NUR ---
THE PATIENT, FAMILY, HOSPICE AND [facility] ARE IN THE PATIENT'S ROOM NOW DISCUSSING OPTIONS. ONE OPTION THEY HAVE PRESENTED IS A FEEDING TUBE. ANOTHER IS HOME WITH HOSPICE.
--- NOTE | 2024-05-01 16:32 | NUR ---
Assessment of comfort for tranport home pt meeting with hopice team in room.
== END 2024-05-01 15:54 | disposition hospice, home (50) | DRG 871 ==
LOC: ER 21:24 → MEDS 21:25
PROVIDERS: Family Medicine; Internal Medicine; Student in an Organized Health Care Education/Training Program; ADMIT Internal Medicine
DX: A41.9 Sepsis, unspecified organism (principal); J18.9 Pneumonia, unspecified organism; J96.21 Acute and chronic respiratory failure with hypoxia; J69.0 Pneumonitis due to inhalation of food and vomit; S32.509A Unspecified fracture of unspecified pubis, initial encounter for closed fracture; J44.1 Chronic obstructive pulmonary disease with (acute) exacerbation; J44.0 Chronic obstructive pulmonary disease with (acute) lower respiratory infection; Z66 Do not resuscitate; Z51.5 Encounter for palliative care; I10 Essential (primary) hypertension; E78.5 Hyperlipidemia, unspecified; K21.9 Gastro-esophageal reflux disease without esophagitis; G62.9 Polyneuropathy, unspecified; R13.10 Dysphagia, unspecified; H40.9 Unspecified glaucoma; D53.9 Nutritional anemia, unspecified; M81.0 Age-related osteoporosis without current pathological fracture; E03.9 Hypothyroidism, unspecified; I95.9 Hypotension, unspecified; I48.91 Unspecified atrial fibrillation; Z88.8 Allergy status to other drugs, medicaments and biological substances; Z88.0 Allergy status to penicillin; Z88.1 Allergy status to other antibiotic agents; Z79.899 Other long term (current) drug therapy; Z79.82 Long term (current) use of aspirin; Z79.890 Hormone replacement therapy; W19.XXXA Unspecified fall, initial encounter
CPT/HCPCS: 0241U; 36415; 71045; 71260; 74230; 80053; 82607; 82728; 82746; 83540; 83550; 83880; 84484; 85014; 85018; 85025; 85045; 85379; 87040; 92610; 92611; 93005; 93010; 94640; 94664; 94760; 94762; 96365; 96372; 96375; 96376; 97110; 97162; 97530; 99285-25; A9270; G0378; J0456; J0696; J1650; J2405; J2919; J3010; J7030; J7040; J7050; J7120; Q9967